=== PATIENT | female | born 1945 | race Hispanic/Latino ===

== ENCOUNTER 2017-10-04 11:34 | Emergency (ER) | payer OTHER ==
[~2017-10-04] VITALS: Ht 154.9 cm; Wt 72.1 kg
[~2017-10-04 11:34] MED LIST: ACETAMINOPHEN325 M1 PO; ATORVASTATIN CA20 MG PO; BACLOFEN10 MG PO; CALTRATE PLUS1 EACH PO; FOLIC ACID1 MG PO; LEVOTHYROXINE112 MCG PO; LOSARTAN HCTZ PO; METHOTREXATE2.5 MG PO; OXYCODONE-ACET1 EAC1 PO; PROBIOTIC & AC1 EACH PO
[2017-10-04] MEDS ORDERED: SODIUM CHLORIDE 0.9% 1000ML 1,000 ML IV STA ×2 (12:22→12:39)
[2017-10-04] MEDS ORDERED: ACETAMINOPHEN 325 MG TAB PO STA (12:22)
[2017-10-04 12:30] LABS: BASOPHILS % 0.2 % (0.0-1.0); EOSINOPHILS % 0.2 % (0.0-6.0); HEMATOCRIT 24.8 % (34.2-44.1); HEMOGLOBIN 8.3 g/dL (12.0-16.0); LYMPHOCYTES # (AUTO) 0.7 (1.0-3.2); LYMPHOCYTES % 6.2 % (18.0-39.1); MEAN CORPUSCULAR HGB CONC 33.5 g/dL (31-35); MEAN CORPUSCULAR VOLUME 101.6 fL (81-99); MONOCYTES # (AUTO) 0.7 (0.2-0.8); NEUTROPHILS # (AUTO) 9.7 (2.1-6.9); NEUTROPHILS % 83.9 % (38.7-80.0); PLATELET COUNT 161 x10e3/uL (140-360); RED BLOOD COUNT 2.44 x10e6/uL (3.6-5.1); RED CELL DISTRIBUTION WIDTH 16.3 % (11.7-14.4)
[2017-10-04] MEDS ORDERED: AZTREONAM 2GM/NS 100ML 2 GM in AZTREONAM 2GM/NS 100ML 100 ML IV ONE (12:30)
[2017-10-04] MEDS ORDERED: VANCOMYCIN 1GM/NS 250 ML 250 ML IV ONE (12:30)
[2017-10-04 12:42] LABS: ALBUMIN 2.3 g/dL (3.5-5.0); ALBUMIN/GLOBULIN RATIO 0.6 (0.8-2.0); ANION GAP 17.3 mmol/L (8-16); CALCIUM 8.2 mg/dL (8.4-10.2); CREATININE, SERUM 3.35 mg/dL (0.57-1.11); POTASSIUM 4.3 mmol/L (3.5-5.1)
[2017-10-04 12:48] LABS: CREATINE KINASE MB 2.6 ng/mL (0-5.0)
[2017-10-04] MEDS ORDERED: INSULIN REGULAR, HUMAN 100 UNIT/1 ML 3ML VIAL IV STA (12:54)
[2017-10-04 13:03] LABS: BILIRUBIN,URINE NEGATIVE (NEGATIVE); CLARITY,URINE CLOUDY (CLEAR); COLOR,URINE YELLOW (YELLOW); KETONES,URINE NEGATIVE (NEGATIVE); LEUKOCYTE ESTERASE ,URINE 2+ (NEGATIVE); NITRITE,URINE NEGATIVE (NEGATIVE); PROTEIN,URINE DIPSTICK 2+ (NEGATIVE); URINE UROBILINOGEN 0.2 mg/dL (0.2 - 1)
[2017-10-04 13:19] LABS: BACTERIA,URINE MODERATE /HPF; EPITHELIAL CELLS,URINE FEW /LPF; WBC,URINE (MAN) >50 /HPF (0-5)
--- NOTE | 2017-10-04 13:47 | Diagnostic Imaging Report ---
EXAMINATION: Head CT HISTORY: Left leg numbness, weakness COMPARISON: None. TECHNIQUE: Multidetector axial images were obtained without contrast from the foramen magnum to the vertex . The images were reconstructed using brain and bone algorithms. Thin section brain images were reformatted into coronal and sagittal planes. Intravenous contrast: None. Image quality: Motion/streaking artifact limits the evaluation of the skull base and posterior cranial fossa. FINDINGS: Parenchyma: 1. Cortico-subcortical encephalomalacia in the right medial occipital lobe (lingual gyrus), likely visible upon remote infarct in the right SENIOR QA ANALYST distribution and in the right superior cerebellum on the right superior cerebellar artery distribution. 2. Few scattered white matter hypodensities, most likely nonspecific microvascular ischemic changes. 3. No mass or hemorrhage. No CT evidence of acute territorial vascular insult. Extra-axial spaces:No abnormal density. No extra-axial fluid collections Brain volume: Normal for age. Ventricles: No hydrocephalus or displacement. Arteries: No density suggestive of thrombus. Dural sinuses: No abnormal density. Extra-axial spaces: No abnormal density. Foramen magnum: No mass, Chiari malformation, or basilar invagination. Sella: No obvious mass. Nonspecific dystrophic calcification along the posterior aspect of the sella turcica. Paranasal/mastoid sinuses: Imaged portions unremarkable. Skull/Scalp: No lytic or blastic lesions. No fractures. IMPRESSION: 1. No acute intracranial hemorrhage or cortical infarcts. 2. 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 Signed by: Dr. Lupe Joseph M.D. on 10/04/2017 1:43 PM
--- NOTE | 2017-10-04 14:30 | Diagnostic Imaging Report ---
EXAMINATION: CT of the thoracic spine without contrast. HISTORY: Back pain, left leg weakness and numbness COMPARISON: Abdomen CT on 05/29/2009 TECHNIQUE: Multidetector helical axial images were obtained without contrast through the thoracic spine. The images were reconstructed using bone and soft tissue algorithms and were viewed in axial, sagittal and coronal planes. FINDINGS: Curvature: Mild increased lower thoracic kyphosis. S-shaped scoliosis. Vertebrae: Mild chronic anterior wedging of the midthoracic vertebral bodies from T6 to T8. Chronic endplate degenerative changes from T5 through T10. Degenerative changes: Disc osteophyte complex formation from T5-T6 to T9-T10 without significant canal stenosis. Mild foraminal narrowing at T7-T8 and T8-T9 bilaterally due to facet arthrosis. Spinal canal: Unremarkable. Paraspinal soft tissues: Partially visualized gastric lap band. Posterior ribs: Unremarkable. IMPRESSION: 1. No acute thoracic spine fractures or dislocations. 2. Mild chronic anterior wedging of the mid/lower thoracic vertebral bodies as detail above. 3. Chronic degenerative changes from T5-T6 to T9-T10 as detailed above. 4. Note is made that acute posttraumatic spinal cord, vascular or ligamentous injury cannot adequately be assessed with CT. Signed by: Dr. Lupe Joseph M.D. on 10/04/2017 2:27 PM
--- NOTE | 2017-10-04 15:11 | Diagnostic Imaging Report ---
EXAMINATION: CT of the lumbar spine HISTORY:Back pain, left lower extremity numbness and weakness COMPARISON: Abdomen CT on 05/29/2009 TECHNIQUE: Multidetector helical axial images were obtained without contrast from L1 to S1. The images were reconstructed using bone and soft tissue algorithms and were viewed in axial, sagittal, and coronal planes. 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 Alignment: -Reversal of the lumbar lordosis centered at L3-L4. Grade 1 anterolisthesis at L1-L2. Mild levoscoliosis. Postoperative changes: -Posterior fusion from L3 to S1 with solid bilateral bone bridging. Bilateral transpedicular screws at L3 and L4 without hardware loosening or fracture. -Interbody fusion from L3 to L5. Vertebral bodies:Minimal chronic anterior wedging of the L3 vertebral body. Prominent chronic endplate degenerative changes at L1-L2.. Paraspinal muscles:Normal. Intervertebral disks: L1-L2: Diffuse disc bulge and vacuum phenomena, ligamenta flava thickening and calcification as well as prominent facet arthrosis. Severe spinal canal and moderate foraminal stenoses. L2-L3: Symmetric disc bulge, vacuum phenomena, ligamenta flava thickening of facet arthrosis. Possible moderate canal and foraminal stenosis, streak artifact from hardware limits evaluation.. L3-L4: Surgical level without significant stenoses. L4-L5: Surgical level with moderate to severe foraminal narrowing mainly on the left. L5-S1: Surgical level without stenoses. Sacroiliac joints: Prominent degenerative changes and vacuum phenomena bilaterally. IMPRESSION: 1. No acute fractures or dislocations. 2. Grade 1 degenerative spondylolisthesis at L1-L2. Reversal of the lumbar lordosis at L3-L4. 3. Solid interbody and posterior fusion from L3 to the sacrum as detailed above. 4. 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 Signed by: Dr. Lupe Joseph M.D. on 10/04/2017 3:07 PM
[2017-10-04] MEDS: AZTREONAM 2GM/NS 100ML 100 ML IV ONE ×2 (15:20→15:26)
[2017-10-04] MEDS ORDERED: SULFAMETHOXAZO1 EAC1 (15:34)
[2017-10-04] MEDS ORDERED: CELEBREX100 MG (15:34)
[2017-10-04 18:49] VITALS: BP 105/75
[2017-10-04] MEDS ORDERED: MORPHINE SULFATE INJ 4 MG/ML INJ IV STA (20:07)
[2017-10-04] MEDS ORDERED: MORPHINE SULFATE INJ 4 MG/ML INJ ONE (20:09)
== END 2017-10-04 20:18 | disposition other institution (70) ==
LOC: ER 11:34
DX: R50.9 Fever, unspecified (principal); R53.1 Weakness; A41.9 Sepsis, unspecified organism; R20.2 Paresthesia of skin; N17.9 Acute kidney failure, unspecified; G54.8 Other nerve root and plexus disorders; M48.061 Spinal stenosis, lumbar region without neurogenic claudication; E11.9 Type 2 diabetes mellitus without complications; R26.2 Difficulty in walking, not elsewhere classified
CPT/HCPCS: 36415; 70450; 72128; 72131; 80053; 81001; 82550; 82553; 84484; 85025; 87040; 87071; 87186; 87205; 93005; 99284; J2270; J3370; J7030

== ENCOUNTER 2019-08-07 18:00 | Inpatient (IN) | payer OTHER ==
[~2019-08-07] VITALS: Ht 152.4 cm; Wt 73.5 kg
[~2019-08-07 18:00] MED LIST changes: +CELEBREX100 MG; +SULFAMETHOXAZO1 EAC1
--- OUTSIDE RECORDS SUMMARY | 2019-08-07 18:04 | XMS REPORT ---
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
--- OUTSIDE RECORDS SUMMARY | 2019-08-07 18:04 | XMS REPORT | Clinical Summary ---
Author Author Ortiz [facility] Organization [facility] Address Unknown Phone Unavailable Care Team Providers Care Shrimp Pond Laborer Name Role Phone Wilman Bullard MD PCP Allergies Comments Active Allergy Reactions Severity Noted Date Amoxicillin Itching 10/04/2017 Codeine Other (See 10/04/2017 Comments) Medications End Date Status Medication Sig Dispensed Refills Start Date Active pregabalin (LYRICA) 75 MG Take 75 mg by 0 capsule mouth 2 (two) times a day. Active losartan-hydrochlorothiaz Take 1 tablet 0 leia (HYZAAR) 100-25 mg by mouth per tablet daily. Active atorvastatin (LIPITOR) 20 Take 20 mg by 0 MG tablet mouth daily. Default OP ins Active oxyCODone-acetaminophen Take 1 tablet 0 (PERCOCET) 10-325 mg per by mouth tablet every 6 (six) hours as needed for moderate pain. Active celecoxib (CeleBREX) 200 Take 200 mg 0 MG capsule by mouth daily. Active folic acid (FOLVITE) 400 Take 400 mcg 0 MCG tablet by mouth daily. Active levothyroxine (SYNTHROID, Take 112 mcg 0 LEVOXYL) 112 mcg tablet by mouth every morning. Active liraglutide (VICTOZA) 0.6 Inject 12-14 0 mg/0.1 mL (18 mg/3 mL) mg under the pen injector skin daily with breakfast. Active ranitidine (ZANTAC 75) 75 Take 75 mg by 0 MG tablet mouth 2 (two) times a day. Active insulin GLARGINE Inject 12 0 (BASAGLAR KWIKPEN U-100 Units under INSULIN) 100 unit/mL the skin injection (pen) every evening. Active Problems Problem Noted Date Discitis of lumbar region 10/06/2017 Type 2 diabetes mellitus 10/05/2017 Hypertension 10/05/2017 Stage 4 chronic kidney disease 10/05/2017 Left leg weakness 10/04/2017 Family History Medical History Relation Name Comments Asthma Brother Diabetes Father Heart disease Father Hyperlipidemia Father Kidney disease Father Stroke Father Cancer Mother Heart disease Mother Hypertension Mother Relation Name Status Comments Brother Father Mother Social History Date Tobacco Use Types Packs/Day Years Used Never Smoker Smokeless Tobacco: Never Used Drinks/Week oz/Week Comments Alcohol Use occasionally Yes Sex Assigned at Date Recorded Not on file Industry Job Start Date Occupation Not on file Not on file Not on file Travel End Travel History Travel Start No recent travel history available. Last Filed Vital Signs Not on file Plan of Treatment Health Maintenance Due Date Last Done Comments DIABETIC RETINAL EYE EXAM 1944 DIABETIC FOOT EXAM 1954 BREAST CANCER SCREENING 1994 COLONOSCOPY SCREENING 1994 SHINGLES VACCINES (#1) 1994 65+ PNEUMOCOCCAL VACCINE 2009 12/06/2016 (2 of 2 - PPSV23) INFLUENZA VACCINE 10/07/2019 12/06/2016 Results Not on fileafter 08/06/2018 Insurance Type Payer Benefit Subscriber ID Effective Phone Address Plan / Dates Group HMO [employer] xxxxxxxxx 2017- [place] Present Advance Directives For more information, please contact: [phone] Patient Crossing Supervisor Explanation Type Date Recorded Advance Directives, Living Will and Medical Power of Associate Director Financial Aid
--- OUTSIDE RECORDS SUMMARY | 2019-08-07 18:04 | XMS REPORT ---
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 Act daphnie Assessment Neuropathy of left hand G56.92 Acti ve Assessment Left foot drop M21.372 Active Problem 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 Act daphnie Problem Flare of rheumatoid arthritis M06.9 Active Problem Neuropathy of left hand G56.92 Acti ve Assessment 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 Problem 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 Problem Vitamin D deficiency E55.9 Active Medications Medication Code System Code Instructions Start Date End Date Status Dosage Lyrica [facility] 69727376016 100 MG Orally Twice a day May 03, 2018 Active 1 capsule Humira Pen ND 19518203249 40 MG/0.8ML Subcutaneous every 2 weeks Active 0.8 ml Chlorzoxazone [facility] 26575339030 500 MG Orally twice daily FebMay 08, 2018 Active 1 tab(s) as needed Ergocalciferol ND 02835436281 57470 UNIT Orally once weekly Active 1 capsule Zantac 75 ND 16542952962 75 MG Orally Twice a day A ctive 1 tablet as needed Levothyroxine Sodium ND 53064036812 112 MCG Orally Once a day Active 1 tablet on an empty stomach in the morning Folic Acid ND 39555973678 400 MCG Orally Once a day Active 1 tablet Losartan Potassium ND 98869307027 100 MG Orally Once a day Active 1 tablet Alendronate Sodium [facility] 01470843857 70 Orally Once a week Active 1 tablet Oxycodone-Acetaminophen [facility] 95680166912 10-325 MG Orally every 6 hrs Active 1 tablet as needed Lantus [facility] 29153938275 100 UNIT/ML Subcutaneous Ac tive not defined Celecoxib [facility] 79166166566 200 MG Orally Once a day A ctive 1 capsule with food Victoza [facility] 07238138499 18 MG/3ML Subcutaneous Acti ve not defined Atorvastatin Calcium [facility] 04356340329 20 MG Orally Once a day Active 1 tablet Vital Signs Date/Time: May 03, 2018 Height 60 in Blood Pressure Diastolic 68 mm Hg Blood Pressure Systolic 152 mm Hg Weight 160 lbs Results No Known Results Summary Purpose [employer] Submission
--- OUTSIDE RECORDS SUMMARY | 2019-08-07 18:04 | XMS REPORT ---
Author Author Mary Gamboa Organization [employer] Address Unknown Phone Unavailable Care Team Providers Care Metal Wire Technician Name Role Phone Breanne Gamboa CP [...] Instructions Start Date End Date Status Dosage Alendronate Sodium [facility] 68580775565 70 Orally Once a week Active 1 tablet Results No Known Results Summary Purpose [employer] Submission
--- OUTSIDE RECORDS SUMMARY | 2019-08-07 18:04 | XMS REPORT ---
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 Problem Vitamin D deficiency E55.9 Active Problem Flare of rheumatoid arthritis M06.9 Active Assessment 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 Assessment Left lateral knee pain M25.562 Activ e Assessment Pain of right shoulder region M25.511 Active Medications Medication Code System Code Instructions Start Date End Date Status Dosage Folic Acid [facility] 91037200769 400 MCG Orally Once a day Active 1 tablet Losartan Potassium ND 54660196261 100 MG Orally Once a day Active 1 tablet Humira Pen [facility] 27505395342 40 MG/0.8ML Subcutaneous every 2 we eks Oct 22, 2017 Apr 20, 2018 Active 0.8 ml Ergocalciferol ND 21382016960 78487 UNIT Orally once weekly Active 1 capsule Lantus ND 26363306293 100 UNIT/ML Subcutaneous Ac tive not defined Oxycodone-Acetaminophen ND 82984464529 10-325 MG Orally every 6 hrs Active 1 tablet as needed Atorvastatin Calcium ND 94777706905 20 MG Orally Once a day Active 1 tablet Celecoxib ND 32309800364 200 MG Orally Once a day A ctive 1 capsule with food Zantac 75 ND 33993268398 75 MG Orally Twice a day A ctive 1 tablet as needed Humira Pen ND 70747045837 40 MG/0.8ML Subcutaneous every 2 weeks Active 0.8 ml Levothyroxine Sodium ND 68024876566 112 MCG Orally Once a day Active 1 tablet on an empty stomach in the morning Victoza [facility] 72512041675 18 MG/3ML Subcutaneous Acti ve not defined Humira Pen [facility] 40310506258 40 MG/0.8ML Subcutaneous every 2 weeks Active 0.8 ml Alendronate Sodium [facility] 86467616026 70 Orally Once a week Active 1 tablet Vital Signs Date/Time: Feb 01, 2018 Height 60 in Blood Pressure Diastolic 69 mm Hg Blood Pressure Systolic 144 mm Hg Weight 162.6 lbs Results No Known Results Summary Purpose [employer] Submission
--- OUTSIDE RECORDS SUMMARY | 2019-08-07 18:04 | XMS REPORT ---
Author Author Mary Gamboa Organization [employer] Address Unknown Phone Unavailable Care Team Providers Care Seismograph Supervisor Name Role Phone Breanne Gamboa CP Unavailable [...] Instructions Start Date End Date Status Dosage Chlorzoxazone [facility] 81707643504 500 MG Orally twice daily FebMay 08, 2018 Active 1 tab(s) as needed Results No Known Results Summary Purpose [employer] Submission
--- OUTSIDE RECORDS SUMMARY | 2019-08-07 18:04 | XMS REPORT ---
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
--- OUTSIDE RECORDS SUMMARY | 2019-08-07 18:04 | XMS REPORT ---
Author Author Mary Gamboa Organization [employer] Address Unknown Phone Unavailable Care Team Providers Care Power Electronics Research Engineer Name Role Phone Breanne Gamboa CP Unavailable [...] Instructions Start Date End Date Status Dosage Victoza [facility] 80604967524 18 MG/3ML Subcutaneous Acti ve not defined Zantac 75 ND 81543525046 75 MG Orally Twice a day A ctive 1 tablet as needed Fentanyl ND 12793329731 25 MCG/HR Transdermal Acti ve 1 patch to skin Ergocalciferol [facility] 65581487035 14739 UNIT Orally once weekly Active 1 capsule Losartan Potassium ND 80502280580 100 MG Orally Once a day Active 1 tablet Levothyroxine Sodium ND 42983998838 112 MCG Orally Once a day Active 1 tablet on an empty stomach in the morning Celecoxib ND 13793484443 200 MG Orally Once a day A ctive 1 capsule with food Alendronate Sodium [facility] 77048990744 70 Orally Once a week Active 1 tablet Macrobid [facility] 03384695679 100 MG Orally every 12 hrs Active 1 capsule with food Enbrel SureClick [facility] 14630902336 50 MG/ML Subcutaneous Active 1 ml Lyrica [facility] 89536140811 100 MG Orally Twice a day Ac tive 1 capsule Atorvastatin Calcium [facility] 51088713710 20 MG Orally Once a day Active 1 tablet Oxycodone-Acetaminophen [facility] 22944536688 10-325 MG Orally every 6 hrs Active 1 tablet as needed Folic Acid [facility] 40994255517 400 MCG Orally Once a day Active 1 tablet Lantus [facility] 80964622427 100 UNIT/ML Subcutaneous Ac tive not defined Results No Known Results Summary Purpose [employer] Submission
--- OUTSIDE RECORDS SUMMARY | 2019-08-07 18:04 | XMS REPORT | Continuity of Care Document ---
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 Ac tive 2017-10-06 00:00:00 Angel kim Type 2 diabetes mellitus Type 2 diabetes mellitus Disease Acti ve 2017-10-05 00:00:00 Angel kim Hypertension Hypertension Disease Active 2017-10-05 00:00:00 Angel Bright Stage 4 chronic kidney disease Stage 4 chronic kidney disease Disea se Active 2017-10-05 00:00:00 Angel Bright Left leg weakness Left leg weakness Disease Active 2017-10-04 00:00:00 Angel Bright Vitamin D deficiency Toyin min D deficiency Active Diagnosis 06/05/2019 Breanne Najam Diagnosis Active 2019-06-05 02:45:41 Breanne Naaldom Left lateral knee pain Left lateral knee pain Active Diagnosis 06/05/2019 Breanne Najam Diagnosis Active 2019-06-05 02 :45:41 Breanne Najam Counseling NOS Coun seling NOS Active Diagnosis 06/05/2019 Breanne Najam Diagnosis Active 2019-06-05 02:45:41 Breanne Najam 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 Diagnosis 06/05/2019 Breanne Najam Diagnosis Active 2019-06-05 02 :45:41 Breanne Najam Neuropathy of left hand Neur opathy of left hand Active Diagnosis 06/05/2019 Breanne Najam Diagnosis Active 2019-06-05 02 :45:41 Breanne Najam Left foot drop Left foot drop Active Diagnosis 06/05/2019 Breanne Najam Diagnosis Active 2019-06-05 02:45:41 Breanne Najam Flare of rheumatoid arthritis Flare of rheumatoid arthritis Active Problem 06/05/2019 Breanne Najam Problem Active 2019-06-05 02:45:41 Breanne Najam 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 Rheumatoid arthr itis of multiple sites without organ or system involvement with positive rheumatoid factor Active Diagnosis 06/05/2019 Breanne Najam Diagnosis Active 2019-06-05 02:45:41 Breanne Najam Post-menopausal Post -menopausal Active Diagnosis 11/03/2017 Breanne Najam Diagnosis Active 2017-11-03 02:47:16 Breanne Najam Pain in right hand Pain in right hand Active Diagnosis 11/03/2017 Breanne Najam Diagnosis Active 2017-11-03 02:47:16 Breanne Najam Pain of right shoulder region Pain of right shoulder region Active Diagnosis 02/02/2018 Breanne Najam Diagnosis Active 2018-02-02 03:46:30 Breanne Najam Pain of left hand Pain of left hand Active Diagnosis 11/03/2017 Breanne Najam Diagnosis Active 2017-11-03 02:47:16 Breanne Najam Allergies, Adverse Reactions, Alerts Allergy Name Allergy Type Status Severity Reaction(s) Onset Date Inacti ve Date Treating Clinician Comments Source Amoxicillin Amoxicillin Active Info Not Available 2019-05-30 00:00 :00 [facility] amoxicillin DA Active SV 2018-11-29 00:00:00 [facility] Codeine Codeine Active Info Not Available 2017-11-02 00:00:00 [facility] Amoxicillin Propensity to adverse reactions to drug Active Itching 2017-10-04 00:00:00 Angel dunn Codeine Propensity to adverse reactions to drug Active Other (See Comments) 2017-10-04 00:00:00 Angel Clark odist Amoxicillin Allergy to Substance Active 2016-04-30 00:00:00 [facility] Codeine Allergy to Substance Active Mild HICCUPS 2009-05-29 00:00:00 [facility] codeine DA Active MA 2008-09-04 00:00:00 [facility] CODEINE DA Active U 2008-09-04 00:00:00 [facility] No Known Contrast Allergies DA Active U 2008-09-04 00:00: 00 [facility] No Known Food Allergies DA Active U 2008-09-04 00:00:00 [facility] No Known Other Allergies DA Active U 2008-09-04 00:00:00 [facility] Family History Family Member Diagnosis Comments Start Date Stop Date Source Natural brother Asthma [place] [facility] Natural father Diabetes [place] [facility] Natural father Heart disease [place] Natural father Hyperlipidemia [place] Natural father Kidney disease [place] Natural father Stroke [facility] Natural mother Cancer [facility] Natural mother Heart disease [place] Natural mother Hypertension Angel Bright Social History Social Habit Start Date Stop Date Quantity Comments Source Sex Assigned At Vik hafsa Bright Alcohol intake 2017-10-04 00:00:00 2017-10-04 00:00:00 Current drinker of alcohol (finding) Angel Bright Alcohol Comment 2017-10-04 00:00:00 2017-10-04 00:00:00 occasionally Angel Bright Smoking Status Start Date Stop Date Source Never smoker Angel dunn Medications Ordered Medication Name Filled Medication Name Start Date Stop Da te Current Medication? Ordering Clinician Indication Dosage Frequency Signature (SIG) Comments Components Source Ergocalciferol 2019-06-05 02:45:41 Yes Breanne Najam 1 capsule Breanne Najam Zantac 75 2019-06-05 02:45:41 Yes Breanne Najam 1 tablet as needed Breanne Najam Levothyroxine Sodium 2019-06-05 02:45:41 Yes Breanne Gabriella m 1 tablet on an empty stomach in the morning Breanne N ajam Folic Acid 2019-06-05 02:45:41 Yes Breanne Najam 1 tablet Breanne Najam Losartan Potassium 2019-06-05 02:45:41 Yes Breanne Najam 1 tablet Breanne Najam Alendronate Sodium 2019-06-05 02:45:41 Yes Breanne Najam 1 tablet Breanne Najam Oxycodone-Acetaminophen 2019-06-05 02:45:41 Yes Breanne N ajam 1 tablet as needed Breanne Najam Lantus 2019-06-05 02:45:41 Yes Breanne Najam not d efined Breanne Najam Celecoxib 2019-06-05 02:45:41 Yes Breanne Najam 1 capsule with food Breanne Najam Victoza 2019-06-05 02:45:41 Yes Breanne Najam not defined Breanne Najam Atorvastatin Calcium 2019-06-05 02:45:41 Yes Breanne Najam 1 tablet Breanne Najam Fentanyl 2019-06-05 02:45:41 Yes Breanne Najam 1 p atch to skin Breanne Najam Lyrica 2019-06-05 02:45:41 Yes Breanne Najam 1 cap yamilex Breanne Najam Macrobid 2019-06-05 02:45:41 Yes Breanne Najam 1 c apsule with food Breanne Najam Enbrel SureClick 2019-06-05 02:45:41 Yes Breanne Najam 1 ml Breanne Najam Humira Pen 2018-09-21 02:47:05 Yes Breanne Najam 0 .8 ml Breanne Najam Lyrica 2018-05-03 00:00:00 Yes Breanne Najam 1 cap yamilex Breanne Najam Chlorzoxazone 2018-02-07 00:00:00 Yes Breanne Najam 1 tab(s) as needed Breanne Najam Humira Pen 2017-10-22 00:00:00 Yes Breanne Najam 0 .8 ml Breanne Najam pregabalin (LYRICA) 75 MG capsule 2017-10-08 19:32:46 Yes 75mg Q.5D Take 75 mg by mouth 2 (two) times a day. [place] losartan-hydrochlorothiazide (HYZAAR) 100-25 mg per tablet 2017-10-08 19:32:46 Yes 1{tbl} QD Take 1 tablet by mouth daily. Angel Bright atorvastatin (LIPITOR) 20 MG tablet 2017-10-08 19:32:46 Yes 20mg QD Take 20 mg by mouth daily. Default OP ins Vik [place] Jew oxyCODone-acetaminophen (PERCOCET) 10-325 mg per tablet 2017-10-08 19:32:46 Yes 1{tbl} Q6H Take 1 tablet b y mouth every 6 (six) hours as needed for moderate pain. Angel Bright celecoxib (CeleBREX) 200 MG capsule 2017-10-08 19:32:46 Yes 200mg QD Take 200 mg by mouth daily. Angel dhaliwal folic acid (FOLVITE) 400 MCG tablet 2017-10-08 19:32:46 Yes 400ug QD Take 400 mcg by mouth daily. Angel estevez levothyroxine (SYNTHROID, LEVOXYL) 112 mcg tablet 2017-10-08 19:32:46 Yes 112ug QD Take 112 mcg by mouth every morning. Angel Bright liraglutide (VICTOZA) 0.6 mg/0.1 mL (18 mg/3 mL) pen injecto r 2017-10-08 19:32:46 Yes 12mg QD Inject 12-14 mg under t he skin daily with breakfast. Angel Bright ranitidine (ZANTAC 75) 75 MG tablet 2017-10-08 19:32:46 Yes 75mg Q.5D Take 75 mg by mouth 2 (two) times a day. Angel Bright insulin GLARGINE (BASAGLAR KWIKPEN U-100 INSULIN) 100 unit/m L injection (pen) 2017-10-08 19:32:46 Yes 12U QD Inject 12 Units under the skin every evening. Angel Bright Morphine Sulfate 2017-07-28 02:47:07 Yes Breanne Najam 1 tablet as needed Breanne Najam Enbrel SureClick 2017-07-27 00:00:00 Yes Breanne Najam 1 ml Breanne Najam PredniSONE 2017-07-27 00:00:00 Yes Breanne Najam 1 tab(s) with food as needed Breanne Najam Methocarbamol 2017-07-27 00:00:00 Yes Breanne Najam 1.5 tablets Breanne Najam Humira Pen 2017-07-27 00:00:00 Yes Breanne Najam 0 .8 ml Breanne Najam Methocarbamol 2017-05-14 03:46:36 Yes Breanne Najam 1.5 tablets Breanne Najam Alendronate Sodium 2017-05-13 00:00:00 Yes Breanne Najam 1 tablet Breanne Najam Ergocalciferol 2017-05-13 00:00:00 Yes Breanne Najam 1 capsule Breanne Naaldom Enbrel SureClick 2017-05-13 00:00:00 Yes Breanne Najam 1 ml Breanne Najam Acetaminophen 325 Mg Tablet Acetaminophen 325 Mg Tablet Yes 650 Every 4 Hours as needed for Pain [facility] Atorvastatin Calcium 20 Mg Tablet Atorvastatin Calcium 20 Mg Tablet Yes 20 Bedtime [facility] Baclofen 10 Mg Tablet Baclofen 10 Mg Tablet Yes 10 Three Times A Day [facility] Calcium Carb/Vit D3/Minerals (Caltrate Plus Tablet) 1 Each Tablet Calcium Carb/Vit D3/Minerals (Caltrate Plus Tablet) 1 Each Tablet Yes 1 Daily [facility] Celecoxib (Celebrex*) 100 Mg Capsule Celecoxib (Celebrex*) 100 Mg C apsule Yes [facility] Folic Acid 1 Mg Tablet Folic Acid 1 Mg Tablet Yes 1 Daily [facility] Lactobac Cmb #3/Fos/Pantethine (Probiotic & Acidophilu s Cap) 1 Each Capsule Lactobac Cmb #3/Fos/Pantethine (Probiotic & Acidophilus Cap) 1 Each Capsule Yes 1 Daily [facility] Levothyroxine Sodium 112 Mcg Tablet Levothyroxine Sodium 112 Mcg Tabl et Yes 112 Daily [facility] Losartan Hctz Losartan Hctz Yes 100 Daily [facility] Methotrexate Sodium (Methotrexate) 2.5 Mg Tablet Metho trexate Sodium (Methotrexate) 2.5 Mg Tablet Yes 5 Use As Di rected [facility] Oxycodone Hcl/Acetaminophen (Oxycodone-Acetaminophen 5 -325) 1 Each Tablet Oxycodone Hcl/Acetaminophen (Oxycodone-Acetaminophen 5-325) 1 Each Tablet Yes 10 Every 6 Hours for Pain C HI [facility] Sulfamethoxazole/Trimethoprim (Sulfamethoxazole-Tmp Ds Tablet) 1 Each Tablet Sulfamethoxazole/Trimethoprim (Sulfamethoxazole-Tmp Ds Tablet) 1 Each Tablet Yes [facility] Vital Signs Vital Name Observation Time Observation Value Comments Source Height 2018-09-19 16:15:00 Breanne N ajam Diastolic (mm Hg) 2018-09-19 16:15:00 Sab een Najam Systolic (mm Hg) 2018-09-19 16:15:00 Sabe en Gabriellam Weight 2018-09-19 16:15:00 Breanne N ajam Height 2018-05-03 17:15:00 Breanne N ajam Diastolic (mm Hg) 2018-05-03 17:15:00 Sab een Najam Systolic (mm Hg) 2018-05-03 17:15:00 Sabe en Bee Weight 2018-05-03 17:15:00 Breanne N ajam Height 2018-02-01 17:15:00 Breanne N ajam Diastolic (mm Hg) 2018-02-01 17:15:00 Sab een Najam Systolic (mm Hg) 2018-02-01 17:15:00 Sabe en Bee Weight 2018-02-01 17:15:00 Breanne N ajam Height 2017-11-02 15:30:00 Breanne N ajam Diastolic (mm Hg) 2017-11-02 15:30:00 Sab een Najam Systolic (mm Hg) 2017-11-02 15:30:00 Sabe en Gabriellam Weight 2017-11-02 15:30:00 Breanne N ajam Height 2017-07-27 15:00:00 Breanne N ajam Diastolic (mm Hg) 2017-07-27 15:00:00 Sab een Najam Systolic (mm Hg) 2017-07-27 15:00:00 Sabe en Gabriellam Weight 2017-07-27 15:00:00 Breanne N ajam Height 2017-05-13 15:15:00 Breanne N ajam Diastolic (mm Hg) 2017-05-13 15:15:00 Sab een Najam Systolic (mm Hg) 2017-05-13 15:15:00 Sabe en Najam Weight 2017-05-13 15:15:00 Breanne N ajam Height 2017-04-29 15:00:00 Breanne N ajam Diastolic (mm Hg) 2017-04-29 15:00:00 Sab een Najam Systolic (mm Hg) 2017-04-29 15:00:00 Sabe en Bee Weight 2017-04-29 15:00:00 Breanne N ajam Procedures Procedure Date / Time Performed Performing Clinician [facility] e Computed tomography of brain without radiopaque contrast 201 10-12-29 00:00:00 FAHAD, [facility] Computed tomography of thoracic spine without contrast 10-04 00:00:00 FAHAD, [facility] Computed tomography of lumbar spine without contrast 2017-09 00:00:[address] [facility] Plan of Care Planned Activity Planned Date Details Comments Source Future Scheduled Test 2019-10-07 00:00:00 INFLUENZA VACCINE [code = INFLUENZA VACCINE] [facility] Future Scheduled Test 2009 00:00:00 65+ PNEUMOCOCCAL V ACCINE (2 of 2 - PPSV23) [code = 65+ PNEUMOCOCCAL VACCINE (2 of 2 - PPSV23)] [facility] Future Scheduled Test 1994 00:00:00 BREAST CANCER SCRE ENING [code = BREAST CANCER SCREENING] [facility] Future Scheduled Test 1994 00:00:00 COLONOSCOPY SCREEN ING [code = COLONOSCOPY SCREENING] [facility] Future Scheduled Test 1994 00:00:00 SHINGLES VACCINES (#1) [code = SHINGLES VACCINES (#1)] [facility] Future Scheduled Test 1954 00:00:00 DIABETIC FOOT EXAM [code = DIABETIC FOOT EXAM] [facility] Future Scheduled Test 1944 00:00:00 DIABETIC RETINAL E YE EXAM [code = DIABETIC RETINAL EYE EXAM] [facility] Encounters Start Date/Time End Date/Time Encounter Type Admission Type Attendi [facility] Care Department Encounter ID Source 2019-08-07 18:04:13 Outpatient MHIEALT MHIEALT [id number] [facility] 2019-05-30 10:45:00 2019-05-30 10:45:00 Outpatient [facility] [id number] [employer] 2018-09-19 11:15:00 2018-09-19 11:15:00 Outpatient [facility] [id number] [employer] 2018-05-13 09:38:00 2018-05-13 09:38:00 Outpatient [facility] [id number] [employer] 2018-05-03 11:15:00 2018-05-03 11:15:00 Outpatient [facility] [id number] [employer] 2018-02-07 11:54:00 2018-02-07 11:54:00 Outpatient [facility] [id number] [employer] 2018-02-01 11:15:00 2018-02-01 11:15:00 Outpatient [facility] [id number] [employer] 2017-12-27 11:21:00 2017-12-27 11:21:00 Outpatient [facility] [id number] [employer] 2017-11-02 10:30:00 2017-11-02 10:30:00 Outpatient [facility] [id number] [employer] 2017-10-21 16:37:00 2017-10-21 16:37:00 Outpatient [facility] [id number] [employer] 2017-10-13 11:37:00 2017-10-13 11:37:00 Outpatient [facility] [id number] [employer] 2017-10-04 11:34:00 2017-10-04 20:18:00 Departed Emergency Room [address] [facility] [id number] [facility] 2017-07-27 12:34:00 2017-07-27 12:34:00 [facility]patient [facility] [id number] [employer] 2017-07-27 10:00:00 2017-07-27 10:00:00 Outpatient [facility] [id number] [employer] 2017-05-13 12:43:00 2017-05-13 12:43:00 Outpatient [facility] [id number] [employer] 2017-05-13 09:15:00 2017-05-13 09:15:00 Outpatient [facility] [id number] [employer] 2017-04-29 09:00:00 2017-04-29 09:00:00 Outpatient [facility] [id number] [employer] Results Test Description Test Time Test Comments Results Result Comments Source URINALYSIS COMPLETE 2019-01-11 20:24:00 Test Item UA COLOR (test code = COLU) YELLOW YELLOW UA APPEARANCE (test code = APPU) Cloudy CLEAR A UA GLUCOSE DIPSTICK (test code = DGLUU) 250 (2+) mg/dL NEGATIVE A UA BILIRUBIN DIPSTICK (test code = BILU) NEGATIVE mg/dL NEGATIVE UA KETONE DIPSTICK (test code = KETU) neg mg/dL NEGATIVE UA SPECIFIC GRAVITY (test code = SGU) 1.015 1.001-1.035 UA BLOOD DIPSTICK (test code = DEANNA) 150 (3+) Nawaf/uL NEGATIVE A UA PH DIPSTICK (test code = JOLLY) 5.0 5.0-8.0 UA PROTEIN DIPSTICK (test code = PROU) 30 (1+) mg/dL Neg-15 A UA UROBILINIOGEN DIPSTICK (test code = URO) norm mg/dL 0.0-0.2 UA NITRITE DIPSTICK (test code = JUNIOR) NEGATIVE NEGATIVE UA LEUKOCYTE ESTERASE DIPSTICK (test code = LEUU) 500 Panchito/uL (3+) u L NEGATIVE A UA WBC (test code = WBCU) 40-50 per HPF 0-5 A UA RBC (test code = RBCU) 5-10 per HPF 0-5 A UA EPITHELIAL CELLS (test code = EPIU) Rare (0-1/hpf) per HPF Few UA BACTERIA (test code = BACU) TRACE per HPF NONE Urine Source? Clean Catch- CT MAXIFAC W/O [id number] 20:14:00 Name: ARNALDO LAMB [facility] : 1945 Age/S: 73 / F [address] [facility] Unit #: [id number] Loc: [place] [address] Phys: Bess MD Acct: [id number] Di s Date: Status: REG ER PHONE #: Exam Date: 01/11/20191948 FAX #: Reason: Pain s/p fall EXAMS: CPT CODE: [id number] CT MAXIFAC W/O CNT [id number] REASON FOR EXAM: Pain s/p fall EXAM ORDER DATE: 01/11/2019 7:13 PM Ordering: Chiquita Toledo MD Attending:Campos Toledo MD Location: PROCEDURE: - CT MAXIFAC W/O CNT FINDINGS: CT images of the f toby were obtained without IV contrast at 2.5 mm thickness. Dose modulatio n, iterative reconstruction, and/or weight based adjustment of the MA/KV w as utilized to reduce the radiation dose to as low as reasonably achievabl e. The globes are intact. The orbital urbina are unremarkable wit hout evidence of orbital blowout fracture. The nasal bone is unrema rkable. The mandibles are within normal limits. No evidence of facial fr acture The visualized paranasal sinuses are well aerated I MPRESSION: No evidence of facial fracture at 2014 Reported and signed by : Angelo Fontana M.D. CC: Campos Toledo MD; Wilman Hough Technologist:ORLY SONI RT(R),RDMS,CT CTDI: DLP: Trnscb Date/Time: 01/11/2019 (2013) Angelica.[email or web address] Orig Print D/T: S: 01/11/2019 (2017) PAGE 1 Signed Report URINALYSIS [id number] 20:11:00* Test Item Value Reference Range Interpretation Comments UA COLOR (test code = COLU) YELLOW YELLOW UA APPEARANCE (test code = APPU) Cloudy CLEAR A UA GLUCOSE DIPSTICK (test code = DGLUU) 250 (2+) mg/dL NEGATIVE A UA BILIRUBIN DIPSTICK (test code = BILU) NEGATIVE mg/dL NEGATIVE UA KETONE DIPSTICK (test code = KETU) neg mg/dL NEGATIVE UA SPECIFIC GRAVITY (test code = SGU) 1.015 1.001-1.035 UA BLOOD DIPSTICK (test code = DEANNA) 150 (3+) Nawaf/uL NEGATIVE A UA PH DIPSTICK (test code = JOLLY) 5.0 5.0-8.0 UA PROTEIN DIPSTICK (test code = PROU) 30 (1+) mg/dL Neg-15 A UA UROBILINIOGEN DIPSTICK (test code = URO) norm mg/dL 0.0-0.2 UA NITRITE DIPSTICK (test code = JUNIOR) NEGATIVE NEGATIVE UA LEUKOCYTE ESTERASE DIPSTICK (test code = LEUU) 500 Panchito/uL (3+) u L NEGATIVE A UA WBC (test code = WBCU) per HPF 0-5 UA RBC (test code = RBCU) per HPF 0-5 UA EPITHELIAL CELLS (test code = EPIU) per HPF Few UA BACTERIA (test code = BACU) per HPF NONE Urine Source? Clean Catch- CT C-SPINE W/O [id number] 20:07:00 Name: ARNALDO LAMB [facility] : 1945 Age/S: 73 / F [address] [facility] Unit #: [id number] Loc: [place] [address] Phys: Bess MD Acct: [id number] Di s Date: Status: REG ER PHONE #: Exam Date: 01/11/20191947 FAX #: Reason: Pain s/p Fall EXAMS: CPT CODE: [id number] CT C-SPINE W/O CONTRAST [id number] REASON FOR EXAM: Pain s/p Fall EXAM ORDER DATE: 01/11/2019 7:13 PM Or dering: Campos Toledo MD Attending:Campos Toledo MD Location: PROCEDURE: - CT C-SPINE W/O CONTRAST FINDINGS: CT i mages of the cervical spine were obtained without IV contrast at 2.5mm. Re constructed coronal and sagittal images were also provided. Dose modulati on, iterative reconstruction, and/or weight based adjustment of the MA/KV was utilized to reduce the radiation dose to as low as reasonably achievab le. The osseous structures are intact. Osteophytes are seen at C5 -C7 The central canal is patent. Severe narrowing of C5-6 an d C6-7 disc spaces IMPRESSION: Degenerative changes and disc dis ease most pronounced at C5-C7. No acute findings Electronic ally Signed by Sandra Fontana on 01/11/2019 at 2006 Report ed and signed by: Angelo Fontana M.D. CC: Campos Toledo MD; Tanna Hough am Technologist:ORLY SONI RT(R),RDMS,CT CTDI: DLP: Trnscb Date/Time: 01/11/2019 (2006) [email or web address] Orig Print D/T: S: 01/11/2019 (2010) PAGE 1 Signed Report - CT HEAD/BRAIN W/O [id number] 20:06:00 Name: ARNALDO LAMB [facility] : 1945 Age/S: 73 / F [address] [facility] Unit #: [id number] Loc: [place], [place] [address] Phys: Bess MD Acct: [id number] Di s Date: Status: REG ER PHONE #: Exam Date: 01/11/20191947 FAX #: [phone] Reason: Pain s/p Fall EXAMS: CPT CODE: [id number] CT HEAD/BRAIN W/O CONT [id number] REASON FOR EXAM: Pain s/p Fall EXAM ORDER DATE: 01/11/2019 7:13 PM Ord ering: Campos Toledo MD Attending:Campos Toledo MD Location: PROCEDURE: - CT HEAD/BRAIN W/O CONT COMPARISON: FINDINGS: CT images of the brain were obtained without IV contrast. Dose modulation, iterative reconstruction, and/or weight based adjust ment of the MA/KV was utilized to reduce the radiation dose to as low as r easonably achievable. The brain parenchyma is within normal limit s. The morris-white matter delineation is unremarkable. The ventricles, cist erns, and sulci are unremarkable. There is no evidence of hemorrhage, mass , mass effect. There is no evidence of acute or old infarct. The calvari um is intact. IMPRESSION: Small soft tissue swelling in th e right frontal scalp. No acute intracranial findings at 2005 Reported and signed by: Angelo Fontana M.D. CC: Campos Toledo MD; Wilman Hough Technologist:ORLY SONI RT(R),RDMS,CT CTDI: DLP: Trnscb Date/Time: 01/11/2019 (2005) [email or web address] Orig Print D/T: S: 01/11/2019 (2008) PAGE 1 Signed Report - XR KNEE 3 V [id number] 20:05:00 Name: ARNALDO LAMB [facility] : 1945 Age/S:73 /F [address] [facility] Unit#:[id number] Loc: [place] [address] Phys: Campos Toledo MD Dis Date: PHONE #: [phone] Status: REG ER FAX #: [phone] Exam Date: 01/11/2019 Reason: Pain s/p Fall EXAMS: CPT CODE: [id number] XR KNEE 3 [place] [id number] REASON FOR EXAM: Pain s/p Fall EXAM ORDER DATE: 01/11/2019 7:13 PM Ordering: Campos Toledo MD Attending:Campos Toledo MD Location: PROCEDURE: - XR KNEE 3 V LT FINDINGS: 4 views of the left knee were obtained. The osseous structures are unremarkable in size and shape. The joint spaces are maintained. No evidence of fracture. No evidence of joint effusion. The patella is intact IMPRESSION: Unremarkable left knee at 2005 Reported and signed by: Angelo Fontana M.D. CC: Campos Toledo MD; Wilman Hough Technologist: ORLY SONI RT(R),RDMS,CT Trnscrpt Data: 01/11/2019 (2004) [email or web address] Orig Print D/T: S: 01/11/2019 (2008) PAGE 1 Signed Report BASIC METABOLIC [id number] 19:36:00* Test Item Value Reference Range Interpretation Comments SODIUM (test code = NA) 139 mmol/L 136-145 N POTASSIUM (test code = K) 4.6 mmol/L 3.5-5.1 N CHLORIDE (test code = CL) 103 mmol/L 101-109 N CARBON DIOXIDE (test code = CO2) 30.2 mmol/L 21-32 N ANION GAP (test code = GAP) 10 mmol/L 10-20 N GLUCOSE (test code = GLU) 230 mg/dL 74-106 H BLOOD UREA NITROGEN (test code = BUN) 29 mg/dL 3-21 H GLOMERULAR FILTRATION RATE (test code = GFR) 39 mL/min >=60 Estimated GFR by using Modified MDRD formula.Chronic kidney disease is defined as either kidney damageor GFR <60 mL/min/1.73 m2 for >3 months. CREATININE (test code = CREAT) 1.34 mg/dL 0.55-1.3 H BUN/CREATININE RATIO (test code = BUN/CREA) 21.6 10-20 H CALCIUM (test code = CA) 8.5 mg/dL 8.4-10.2 N CREATINE KINASE (CK)2019-01-11 19:36:00* Test Item Value Reference Range Interpretation Comments CREATINE KINASE (CK) (test code = CK) 124 U/L 26-192 N [id number] 19:36:00* Test Item Value Reference Range Interpretation Comments MAGNESIUM (test code = MAG) 2.2 mg/dL 1.6-2.3 N BASIC METABOLIC [id number] 19:32:00* Test Item Value Reference Range Interpretation Comments SODIUM (test code = NA) 139 mmol/L 136-145 N POTASSIUM (test code = K) 4.6 mmol/L 3.5-5.1 N CHLORIDE (test code = CL) 103 mmol/L 101-109 N CARBON DIOXIDE (test code = CO2) 30.2 mmol/L 21-32 N ANION GAP (test code = GAP) 10 mmol/L 10-20 N GLUCOSE (test code = GLU) 230 mg/dL 74-106 H BLOOD UREA NITROGEN (test code = BUN) 29 mg/dL 3-21 H GLOMERULAR FILTRATION RATE (test code = GFR) 39 mL/min >=60 Estimated GFR by using Modified MDRD formula.Chronic kidney disease is defined as either kidney damageor GFR <60 mL/min/1.73 m2 for >3 months. CREATININE (test code = CREAT) 1.34 mg/dL 0.55-1.3 H BUN/CREATININE RATIO (test code = BUN/CREA) 21.6 10-20 H CALCIUM (test code = CA) 8.5 mg/dL 8.4-10.2 N CREATINE KINASE (CK)2019-01-11 19:32:00* Test Item Value Reference Range Interpretation Comments CREATINE KINASE (CK) (test code = CK) IUnit/L 26-208 [id number] 19:32:00* Test Item Value Reference Range Interpretation Comments MAGNESIUM (test code = MAG) mg/dL 1.8-2.4 CBC W/AUTO [id number] 19:25:00* Test Item Value Reference Range Interpretation Comments WHITE BLOOD CELL (test code = WBC) 10.1 K/mm3 4.5-12.5 N RED BLOOD CELL (test code = RBC) 2.67 mill/mm3 3.7-5.2 L HEMOGLOBIN (test code = HGB) 9.1 gram/dL 11.5-15.5 L HEMATOCRIT (test code = HCT) 28.3 % 36.0-46.0 L MEAN CELL VOLUME (test code = MCV) 106.0 fL 80-98 H MEAN CELL HGB (test code = MCH) 34.1 picogram 27.0-33.0 H MEAN CELL HGB CONCETRATION (test code = MCHC) 32.2 gram/dL 33.0-36. 0 L RED CELL DISTRIBUTION WIDTH (test code = RDW) 14.5 % 11.6-16. 2 N RED CELL DISTRIBUTION WIDTH SD (test code = RDW-SD) 56.5 fL 37 .0-51.0 H PLATELET COUNT (test code = PLT) 223 K/mm3 150-450 N MEAN PLATELET VOLUME (test code = MPV) 11.1 fL 6.7-11.0 H NEUTROPHIL % (test code = NT%) 61.0 % 39.0-69.0 N LYMPHOCYTE % (test code = LY%) 30.7 % 25.0-55.0 N MONOCYTE % (test code = MO%) 6.5 % 0.0-10.0 N EOSINOPHIL % (test code = EO%) 1.3 % 0.0-5.0 N BASOPHIL % (test code = BA%) 0.2 % 0.0-1.0 N NEUTROPHIL # (test code = NT#) 6.19 K/mm3 1.8-7.7 N LYMPHOCYTE # (test code = LY#) 3.11 K/mm3 1.0-5.0 N MONOCYTE # (test code = MO#) 0.66 K/mm3 0-0.8 N EOSINOPHIL # (test code = EO#) 0.13 K/mm3 0.0-0.5 N BASOPHIL # (test code = BA#) 0.02 K/mm3 0.0-0.2 N MANUAL DIFF REQUIRED (test code = MDIFF) NO - XR FLUOROSCOPY 0-60 [id number] 10:10:00 FAX: Wilman Tamez MD [phone] [place]: St: REG FAX: Kevin Cash MD [phone] Name: ARNALDO LAMB [facility] : 1945 Age/S: 73/F [address] [place] [address] Unit #: [id number] Loc: [place] [address] Phys: Kevin Greenwood MD Acct: [id number] Dis Date: Status[place] [facility] [place] #: [phone] Exam Date: 12/01/2018 0757 FAX #: [phone] Reason: CHRONIC PAIN SYNDROME ,POST LAMINECTOMY SYNDROME EXAMS: CPT CODE: [id number] XR FLUOROSCOPY 0-60 MIN 63930 Study: - XR FLUOROSCOPY 0-60 MIN 12/01/2018 7:43 AM Patient Name: ARNALDO LAMB MR: [id number] DATE: 019 7:43 AM : 1945; Age: 73 years y/o Female Ordering Phy sician: Kevin Greenwood MD Clinical Indication: CHRONIC PAIN SYND VADIM,POST LAMINECTOMY SYNDROME (LUMBAR) Intraprocedural fluo roscopy was provided by the Department of Radiology. Any images obtained w ere interpreted by the surgeon intraoperatively. Fluoroscopy time: 11 seconds Reference Air Kerma: 1.8 mGy SL: [id number] at 1010 R eported and signed by: Daylin Foreman D.O. CC: Wilman Hough MD; Kevin Greenwood MD Technologist: RT Moncho(R) Trnscrd Date/Time/By: 12/01/2018 (1010) : By: Pasquale [id number] Orig Print D/T: S: 12/01/2018 (1013) JOSÉ MIGUEL JARVIS 1 Signed Report GLUBED 2018-12-01 09:03:00* Test Item Value Reference Range Interpretation Comments GLUBED (test code = GLUBED) 232 MG/DL 70-110 H Performed by certified bushing press operator at [facility] [id number] 08:28:00* Test Item Value Reference Range Interpretation Comments GLUBED (test code = GLUBED) 164 MG/DL 70-110 H Performed by certified bushing press operator at [facility] [id number] 07:56:00* Test Item Value Reference Range Interpretation Comments GLUBED (test code = GLUBED) 173 MG/DL 70-110 H Performed by certified bushing press operator at [facility] - XR CHEST 2 [id number] 12:29:00 FAX: Wilman Tamez MD [phone] [place]: St: PRE FAX: Kevin Cash MD [phone] Name: ARNALDO LAMB [facility] : 1945 Age/S: 73/F [address] [place] [address] Blvd Unit #: [id number] Loc: [place] [address] Phys: Kevin Greenwood MD Acct: [id number] Dis Date: Status: PRE SDC PHONE #: [phone] Exam Date: 11/29/2018 1224 FAX #: [phone] Reason: IT PUMP TRIAL FOR CHRONIC PAIN SYNDROME EXAMS: CPT CODE: [id number] XR CHEST 2 V 73912 EXAM: PA and lateral chest. EXAM DATE: November 29, 2018 at 1144 hours CLINICAL HISTORY: IT PUMP TRIAL FOR CHRONIC PAIN SYNDROME COMPARISON: None Right size is within normal limits. Mild atherosclerotic calcifications of the intrathoracic aorta are noted.. The lungs appear free of acute disease. Fixation devices noted in the upper lumbar spine region. There is also evidence of gastric banding. IMPRESSION: No evidence of acute cardiopulmonary disease. at 5319 Reported and signed by: Adrianna Chow M.D. CC: Wilman Hough MD; Kevin Greenwood MD Technologist: David Muller RT(R) Trnscrd Date/Time/By: 11/29/2018 (2568) : By: Charito Orig Print D/T: S: 11/29/2018 (8855) PAGE 1 Signed Report CBC W/AUTO DIFF 2018-11-29 12:11:00* Test Item Value Reference Range Interpretation Comments WHITE BLOOD CELL (test code = WBC) 7.82 x10 3/uL 4.5-11.0 N RED BLOOD CELL (test code = RBC) 3.20 x10 6/uL 3.54-5.02 L HEMOGLOBIN (test code = HGB) 10.9 g/dL 11.0-15.0 L HEMATOCRIT (test code = HCT) 33.5 % 33.0-45.0 N MEAN CELL VOLUME (test code = MCV) 104.7 fL 81.0-99.0 H MEAN CELL HGB (test code = MCH) 34.1 pg 27.0-33.0 H MEAN CELL HGB CONCETRATION (test code = MCHC) 32.5 g/dL 33.0-37. 0 L RED CELL DISTRIBUTION WIDTH CV (test code = RDW) 14.1 % 11.5- 14.5 N RED CELL DISTRIBUTION WIDTH SD (test code = RDW-SD) 53.5 fL 37 .0-54.0 N PLATELET COUNT (test code = PLT) 258 x10 3/uL 150-400 N MEAN PLATELET VOLUME (test code = MPV) 11.5 fL 7.0-9.0 H NEUTROPHIL % (test code = NT%) 51.2 % 56.0-77.0 L IMMATURE GRANULOCYTE % (test code = IG%) 0.4 % 0.0-2.0 N LYMPHOCYTE % (test code = LY%) 35.7 % 14.0-32.0 H MONOCYTE % (test code = MO%) 7.9 % 4.8-9.0 N EOSINOPHIL % (test code = EO%) 4.5 % 0.3-3.7 H BASOPHIL % (test code = BA%) 0.3 % 0.0-2.0 N NUCLEATED RBC % (test code = NRBC%) 0.0 % 0-0 N NEUTROPHIL # (test code = NT#) 4.01 x10 3/uL 2.0-7.6 N IMMATURE GRANULOCYTE # (test code = IG#) 0.03 x10 3/uL 0.00-0.03 N LYMPHOCYTE # (test code = LY#) 2.79 x10 3/uL 1.0-3.8 N MONOCYTE # (test code = MO#) 0.62 x10 3/uL 0.1-0.8 N EOSINOPHIL # (test code = EO#) 0.35 x10 3/uL 0.0-0.2 H BASOPHIL # (test code = BA#) 0.02 x10 3/uL 0.0-0.2 N NUCLEATED RBC # (test code = NRBC#) 0.00 x10 3/uL 0.0-0.1 N MANUAL DIFF REQUIRED (test code = MDIFF) NO BASIC METABOLIC [id number] 11:34:00* Test Item Value Reference Range Interpretation Comments SODIUM (test code = NA) 138 mEq/L 134-147 N POTASSIUM (test code = K) 4.6 mEq/L 3.4-5.0 N CHLORIDE (test code = CL) 105 mEq/L 100-108 N CARBON DIOXIDE (test code = CO2) 29 mEq/L 21-33 N ANION GAP (test code = GAP) 9 0-20 N GLUCOSE (test code = GLU) 155 mg/dL 70-110 H BLOOD UREA NITROGEN (test code = BUN) 21 mg/dL 7-18 H GLOMERULAR FILTRATION RATE (test code = GFR) 40.0 70-80 L Units of measure = ml/min/1.73 m2 CREATININE (test code = CREAT) 1.3 mg/dL 0.6-1.3 N CALCIUM (test code = CA) 9.2 mg/dL 8.0-10.[address] LUMBAR SPINE [id number] 14:31:00 [place] [address] Patient Name: ARNALDO LAMB MR #: [id number] : 1945 Age/Sex: 72/F Req #: [id number] Adm Physician: Ordered by: JESSICA VÁSQUEZ MD Report #: [id number] Location: ER Room/Bed: Procedure: [id number] CT/CT LUMBAR SPINE WO Exam Date: 10/04/17 Exam Time: 1240 REPORT STATUS: S igned EXAMINATION: CT of the lumbar spine HISTORY:Back pain, left lower extremity numbness and weakness COMPARISON: Abdomen CT on 05/29/2009 TECHNIQ UE: Multidetector helical axial images were obtained without contrast from L1 to S1. The images were reconstructed using bone and soft tissue algorithms a nd were viewed in axial, sagittal, and coronal planes. 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 Alignment: -Reversal of the lumbar lordosis ce ntered at L3-L4. Grade 1 anterolisthesis at L1-L2. Mild levoscoliosis. Postope rative changes: -Posterior fusion from L3 to S1 with solid bilateral bone brid ging. Bilateral transpedicular screws at L3 and L4 without hardware loosening or fracture. -Interbody fusion from L3 to L5. Vertebral bodies:Minimal chronic anterior wedging of the L3 vertebral body. Prominent chronic endplate degenerative changes at L1-L2.. Paraspinal muscles:Normal. Intervertebral disks: L1-L2: Diffuse disc bulge and vacuum phenomena, liga menta flava thickening and calcification as well as prominent facet arthrosis. Severe spinal canal and moderate foraminal stenoses. L2-L3: Symmetric disc bulge, vacuum phenomena, ligamenta flava thickening of facet arthrosis. Poss ible moderate canal and foraminal stenosis, streak artifact from hardware limi ts evaluation.. L3-L4: Surgical level without significant stenoses. L4-L 5: Surgical level with moderate to severe foraminal narrowing mainly on the le ft. L5-S1: Surgical level without stenoses. Sacroiliac joints: Promi nent degenerative changes and vacuum phenomena bilaterally. IMPRESSION: 1. No acute fractures or dislocations. 2. Grade 1 degenerative spondylo listhesis at L1-L2. Reversal of the lumbar lordosis at L3-L4. 3. Solid i nterbody and posterior fusion from L3 to the sacrum as detailed above. 4. 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 Signed by: Dr. French Joseph M.D. on 10/04/2017 3:07 PM Dictated By: FRENCH JOSEPH MD 06 COPY TO: IFRAH VÁSQUEZ MD CT THORACIC SPINE [id number] 14:19:00 [place] [address] Patient Name: ARNALDO LAMB MR #: [id number] : 1945 Age/Sex: 72/F Req #: [id number] Adm Physician: Ordered by: JESSICA VÁSQUEZ MD Report #: [id number] Location: ER Room/Bed: Procedure: [id number] CT/CT THORACIC SPINE WO Exa m Date: 10/04/17 Exam Time: 1240 REPORT STATUS: Signed ADDENDUM #1 Dose modulation, iterative donny nstruction, and/or weight based adjustment of the mA/kV was utilized to reduce the radiation dose to as low as reasonably achievable. Signed by: Dr. Destini Joseph M.D. on 10/26/2017 11:48 AM ORIGINAL REPORT E XAMINATION: CT of the thoracic spine without contrast. HISTORY: Back pain, left leg weakness and numbness COMPARISON: Abdomen CT on 05/29/2009 TECHNIQU E: Multidetector helical axial images were obtained without contrast through t he thoracic spine. The images were reconstructed using bone and soft tissue a lgorithms and were viewed in axial, sagittal and coronal planes. FINDING S: Curvature: Mild increased lower thoracic kyphosis. S-shaped scoliosis. Vertebrae: Mild chronic anterior wedging of the midthoracic vertebral bodies from T6 to T8. Chronic endplate degenerative changes from T5 through T1 0. Degenerative changes: Disc osteophyte complex formation from T5-T6 to T9-T10 without significant canal stenosis. Mild foraminal narrowing at T7-T8 a nd T8-T9 bilaterally due to facet arthrosis. Spinal canal: Unremarkable . Paraspinal soft tissues: Partially visualized gastric lap band. P osterior ribs: Unremarkable. IMPRESSION: 1. No acute thoracic sp ine fractures or dislocations. 2. Mild chronic anterior wedging of the mid /lower thoracic vertebral bodies as detail above. 3. Chronic degenerativ e changes from T5-T6 to T9-T10 as detailed above. 4. Note is made that acu te posttraumatic spinal cord, vascular or ligamentous injury cannot adequately be assessed with CT. Signed by: Dr. French Joseph M.D. on 10/04/2017 2:27 PM Dictated By: FRENCH JOSEPH MD 1148 Transcribed By: AURA on 10/04/17 1427 COPY TO: PAULA VÁSQUEZ MD CT BRAIN [id number] 13:34:00 [place] [address] Patient Name: ARNALDO LAMB MR #: [id number] : 1945 Age/Sex: 72/F Req #: [id number] Adm Physician: Ordered by: JESSICA VÁSQUEZ MD Report #: [id number] Location: Room/Bed: Procedure: [id number] CT/CT BRAIN WO Exam Date: 10/04/17 Exam Time: 1240 REPORT STATUS: Signed ADDENDUM #1 Dose modulation, iterative reconstructio n, and/or weight based adjustment of the mA/kV was utilized to reduce the radi ation dose to as low as reasonably achievable. Signed by: Dr. French Joseph M.D. on 10/25/2017 10:05 AM ORIGINAL REPORT EXAMINATIO N: Head CT HISTORY: Left leg numbness, weakness COMPARISON: None. TECH NIQUE: Multidetector axial images were obtained without contrast from the fora men magnum to the vertex . The images were reconstructed using brain and bone algorithms. Thin section brain images were reformatted into coronal and sagit helder planes. Intravenous contrast: None. Image quality: Motion/streaking art ifact limits the evaluation of the skull base and posterior cranial fossa. FINDINGS: Parenchyma: 1. Cortico-subcortical encephalomalacia in the right medial occipital lobe (lingual gyrus), likely visible upon remote i nfarct in the right ADVERTISING TRAFFIC [employer] distribution and in the right superior cerebellum on t he right superior cerebellar artery distribution. 2. Few scattered white ma tter hypodensities, most likely nonspecific microvascular ischemic changes. 3. No mass or hemorrhage. No CT evidence of acute territorial vascular insult. Extra-axial spaces:No abnormal density. No extra-axial fluid co llections Brain volume: Normal for age. Ventricles: No hydroceph alus or displacement. Arteries: No density suggestive of thrombus. Dural sinuses: No abnormal density. Extra-axial spaces: No abnormal density. Foramen magnum: No mass, Chiari malformation, or basilar invagi nation. Sella: No obvious mass. Nonspecific dystrophic calcification rick ng the posterior aspect of the sella turcica. Paranasal/mastoid sinuses : Imaged portions unremarkable. Skull/Scalp: No lytic or blastic lesions . No fractures. IMPRESSION: 1. No acute intracranial hemorrhage or cortical infarcts. 2. 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 Signed by: Dr. French Joseph M.D. on 10/04/2017 1:43 PM Dicta isela By: FRENCH JOSEPH MD 100 5 Transcribed By: AURA on 10/04/17 1343 COPY TO: JESSICA VÁSQUEZ MD Urine [id number] 13:19:00* Test Item Value Reference Range Interpretation Comments Urine WBC (test code = 5821-4) 50- 0-5 H [facility] [id number] 13:19:00* Test Item Value Reference Range Interpretation Comments Urine RBC (test code = 90195-7) 11-20 0-5 H [facility] [id number] 13:19:00* Test Item Value Reference Range Interpretation Comments Urine Bacteria (test code = 42178-4) MODERATE NONE H [facility] Epithelial [id number] 13:19:00 * Test Item Value Reference Range Interpretation Comments Urine Epithelial Cells (test code = 41021-1) FEW NONE [facility] [id number] 13:03:00* Test Item Value Reference Range Interpretation Comments Urine Color (test code = 5778-6) YELLOW YELLOW [facility] [id number] 13:03:00* Test Item Value Reference Range Interpretation Comments Urine Clarity (test code = 65687-7) CLOUDY CLEAR H [facility]wood[facility] Specific Jusosbx0332-01-85 13:03:00 * Test Item Value Reference Range Interpretation Comments Urine Specific [place] (test code = 5811-5) 1.025 1.010-1.02 5 [facility] [id number] 13:03:00* Test Item Value Reference Range Interpretation Comments Urine pH (test code = 36181-1) 5 5-7 [facility] Leukocyte Sgpjwfpv1474-73-61 13:03:00* Test Item Value Reference Range Interpretation Comments Urine Leukocyte Esterase (test code = 5799-2) 2+ NEGATIVE H [facility] Bqdbcff1821-69-83 13:03:00* Test Item Value Reference Range Interpretation Comments Urine Nitrite (test code = 55981-6) NEGATIVE NEGATIVE [facility] Jnhkovo5876-50-90 13:03:00* Test Item Value Reference Range Interpretation Comments Urine Protein (test code = 5804-0) 2+ NEGATIVE H [facility]wood[facility] Glucose (UA)2017-10-04 13:03:00* Test Item Value Reference Range Interpretation Comments Urine Glucose (UA) (test code = 2349-9) 2+ NEGATIVE H [facility]wood[facility] [id number] 13:03:00* Test Item Value Reference Range Interpretation Comments Urine Ketones (test code = 80288-1) NEGATIVE NEGATIVE [facility] Lhbflbwehdwe6201-16-28 13:03:00* Test Item Value Reference Range Interpretation Comments Urine Urobilinogen (test code = 05225-8) 0.2 0.2-1 [facility]wood[facility] Hagusedyf2893-60-64 13:03:00* Test Item Value Reference Range Interpretation Comments Urine Bilirubin (test code = 1978-6) NEGATIVE NEGATIVE [facility]wood[facility] Doqva0389-40-13 13:03:00* Test Item Value Reference Range Interpretation Comments Urine Blood (test code = 53312-9) 2+ NEGATIVE H [facility] KingwoodCreatine Kinase [id number] 12:51:00* Test Item Value Reference Range Interpretation Comments Creatine Kinase MB (test code = 84639-3) 2.60 0-5.0 [facility] KingwoodTroponin [id number] 12:51:00* Test Item Value Reference Range Interpretation Comments Troponin I (test code = DMA9647) 0.012 0-0.300 [facility] Owwfi5976-34-73 12:48:00* Test Item Value Reference Range Interpretation Comments Sodium Level (test code = 2951-2) 129 136-145 L [facility]woodPotassium Wltlx0161-31-91 12:48:00* Test Item Value Reference Range Interpretation Comments Potassium Level (test code = 2823-3) 4.3 3.5-5.1 [facility] KingwoodChloride Wmymg9253-25-44 12:48:00* Test Item Value Reference Range Interpretation Comments Chloride Level (test code = 2075-0) 95 98-107 L [facility] KingwoodCarbon Dioxide Xtoza3626-61-62 12:48:00* Test Item Value Reference Range Interpretation Comments Carbon Dioxide Level (test code = 2028-9) 21 22-29 L [facility] KingwoodAnion Oyq1757-53-51 12:48:00* Test Item Value Reference Range Interpretation Comments Anion Gap (test code = 04514-1) 17.3 8-16 H [facility] KingwoodBlood Urea Rpgywkjz0334-83-02 12:48:00* Test Item Value Reference Range Interpretation Comments Blood Urea Nitrogen (test code = 3094-0) 79 7-26 H [facility] KingwoodCreatinine2018-07-30 12:48:00* Test Item Value Reference Range Interpretation Comments Creatinine (test code = 2160-0) 3.35 0.57-1.11 H [facility] KingwoodBUN/Creatinine Mdzoj8779-84-03 12:48:00* Test Item Value Reference Range Interpretation Comments BUN/Creatinine Ratio (test code = 3097-3) 24 6-25 [facility] KingwoodEstimat Glomerular Filtration Rate 2017-10-04 12:48:00* Test Item Value Reference Range Interpretation Comments Estimat Glomerular Filtration Rate (test code = 46917-1) 13 >60 L Ranges were taken from the National Kidney Disease Education Program and the [facility] Kid[facility] Foundation literature.Reference ranges:60 or greater: Pagkip10-78 ( for 3 consecutive months): Chronic kidney disease 15 or less: Kidney failureMemorial Hermann Surgical Hospital KingwoodGlucose Laudv7975-90-17 12:48:00* Test Item Value Reference Range Interpretation Comments Glucose Level (test code = FPZ1905) 441 74-118 HH Results called to ISHA FUNEZ RN at 1247 on 10/04/17 by Rusty Massey. RB OK.This test has been rerun and double checked for accuracy.[facility] KingwoodCalcium Cevpu8730-43-34 12:48:00* Test Item Value Reference Range Interpretation Comments Calcium Level (test code = 28049-8) 8.2 8.4-10.2 L [facility] KingwoodTotal Vcieveaym8097-34-20 12:48:00* Test Item Value Reference Range Interpretation Comments Total Bilirubin (test code = 1975-2) 0.6 0.2-1.2 [facility] KingwoodAspartate Amino Transf (AST/SGOT) 2017-10-04 12:48:00* Test Item Value Reference Range Interpretation Comments Aspartate Amino Transf (AST/SGOT) (test code = Aspartate Amino Transf (AST/SGOT)) 26 5-34 [facility] KingwoodAlanine Aminotransferase (ALT/SGPT) 2017-10-04 12:48:00* Test Item Value Reference Range Interpretation Comments Alanine Aminotransferase (ALT/SGPT) (test code = 1742-6) 23 0-55 [facility] KingwoodTotal Ugoolhh9960-02-60 12:48:00* Test Item Value Reference Range Interpretation Comments Total Protein (test code = 2885-2) 6.2 6.5-8.1 L [facility] KingwoodAlbumin2018-07-30 12:48:00* Test Item Value Reference Range Interpretation Comments Albumin (test code = 1751-7) 2.3 3.5-5.0 L [facility] KingwoodGlobulin2018-07-30 12:48:00* Test Item Value Reference Range Interpretation Comments Globulin (test code = 23114-8) 3.9 2.3-3.5 H [facility] KingwoodAlbumin/Globulin Embmr8974-57-99 12:48:00 * Test Item Value Reference Range Interpretation Comments Albumin/Globulin Ratio (test code = 1759-0) 0.6 0.8-2.0 L [facility] KingwoodAlkaline Ytcfpsgdigs4469-73-84 12:48:00* Test Item Value Reference Range Interpretation Comments Alkaline Phosphatase (test code = 6768-6) 90 40-150 [facility] KingwoodCreatine Otesdk3193-42-97 12:48:00* Test Item Value Reference Range Interpretation Comments Creatine Kinase (test code = 2157-6) 123 29-168 [facility] KingwoodWhite Blood Udjlb8072-18-72 12:32:00* Test Item Value Reference Range Interpretation Comments White Blood Count (test code = 6690-2) 11.51 4.8-10.8 H [facility] KingwoodRed Blood Trncs4518-66-18 12:32:00* Test Item Value Reference Range Interpretation Comments Red Blood Count (test code = 789-8) 2.44 3.6-5.1 L [facility] KingwoodHemoglobin2018-07-30 12:32:00* Test Item Value Reference Range Interpretation Comments Hemoglobin (test code = 39673-8) 8.3 12.0-16.0 L [facility] KingwoodHematocrit2018-07-30 12:32:00* Test Item Value Reference Range Interpretation Comments Hematocrit (test code = 4544-3) 24.8 34.2-44.1 L [facility] KingwoodMean Corpuscular Vriudg2144-36-38 12:32:00* Test Item Value Reference Range Interpretation Comments Mean Corpuscular Volume (test code = 787-2) 101.6 81-99 H [facility] KingwoodMean Corpuscular Qznhcycvvl3220-74-95 12:32:00* Test Item Value Reference Range Interpretation Comments Mean Corpuscular Hemoglobin (test code = 785-6) 34.0 28-32 H [facility] KingwoodMean Corpuscular Hemoglobin Concent 2017-10-04 12:32:00* Test Item Value Reference Range Interpretation Comments Mean Corpuscular Hemoglobin Concent (test code = 786-4) 33.5 31-35 [facility] KingwoodRed Cell Distribution Ezyaw6563-35-24 12:32:00* Test Item Value Reference Range Interpretation Comments Red Cell Distribution Width (test code = 56777-0) 16.3 11.7 -14.4 H [facility] KingwoodPlatelet Doixs3928-70-26 12:32:00* Test Item Value Reference Range Interpretation Comments Platelet Count (test code = 777-3) 161 140-360 [facility] KingwoodNeutrophils (%) (Auto)2017-10-04 12:32:00 * Test Item Value Reference Range Interpretation Comments Neutrophils (%) (Auto) (test code = 92699-2) 83.9 38.7-80.0 H [facility] [facility] (Auto)2017-10-04 12:32:00 * Test Item Value Reference Range Interpretation Comments Lymphocytes (%) (Auto) (test code = 736-9) 6.2 18.0-39.1 L [facility] (Auto)2017-10-04 12:32:00* Test Item Value Reference Range Interpretation Comments Monocytes (%) (Auto) (test code = 5905-5) 6.0 4.4-11.3 [facility] (Auto)2017-10-04 12:32:00 * Test Item Value Reference Range Interpretation Comments Eosinophils (%) (Auto) (test code = 713-8) 0.2 0.0-6.0 [facility] (Auto)2017-10-04 12:32:00* Test Item Value Reference Range Interpretation Comments Basophils (%) (Auto) (test code = 706-2) 0.2 0.0-1.0 [facility] %2017-10-04 12:32:00* Test Item Value Reference Range Interpretation Comments IM GRANULOCYTES % (test code = IM GRANULOCYTES %) 3.5 0.0- 1.0 H [facility]woodNeutrophils # (Auto)2017-10-04 12:32:00* Test Item Value Reference Range Interpretation Comments Neutrophils # (Auto) (test code = 751-8) 9.7 2.1-6.9 H [facility]woodLymphocytes # (Auto)2017-10-04 12:32:00* Test Item Value Reference Range Interpretation Comments Lymphocytes # (Auto) (test code = 44001-7) 0.7 1.0-3.2 L [facility] # (Auto)2017-10-04 12:32:00* Test Item Value Reference Range Interpretation Comments Monocytes # (Auto) (test code = 742-7) 0.7 0.2-0.8 [facility] # (Auto)2017-10-04 12:32:00* Test Item Value Reference Range Interpretation Comments Eosinophils # (Auto) (test code = 711-2) 0.0 0.0-0.4 [facility] # (Auto)2017-10-04 12:32:00* Test Item Value Reference Range Interpretation Comments Basophils # (Auto) (test code = 704-7) 0.0 0.0-0.1 [facility]woodAbsolute Immature Granulocyte (auto 2017-10-04 12:32:00* Test Item Value Reference Range Interpretation Comments Absolute Immature Granulocyte (auto (madeleine t code = Absolute Immature Granulocyte (auto) 0.40 0-0.1 H [facility]
--- OUTSIDE RECORDS SUMMARY | 2019-08-07 18:04 | XMS REPORT | Continuity of Care Document ---
Author Author [employer], ARNALDO Khan [employer] Address Unknown Phone Unavailable Care Team Providers Care Video Presentation Operator Name Role Phone [employer] Unavailable Un available Problems Problem Status Onset Date Classification Date Reported Comments Source Vitamin D deficiency Active Diagnosis 06/05/2019 Breanne Najam Left lateral knee pain Active Diagnosis 06/05/2019 Breanne Najam Counseling NOS Active Diagnosis 06/05/2019 Breanne Najam Neuropathy of right hand Active Diagnosis 06/05/2019 Breanne Najam Neuropathy of left hand Active Diagnosis 06/05/2019 Breanne Najam Left foot drop Active Diagnosis 06/05/2019 Breanne Najam Flare of rheumatoid arthritis Active Problem Breanne Najam 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 Active Diagnosis 0 06/05/2019 Breanne Najam Post-menopausal Active Diagnosis 11/03/2017 Breanne Najam Pain in right hand Active Diagnosis 11/03/2017 Breanne Najam Pain of right shoulder region Active Diagnosis 1 04/04/2017 Breanne Najam Pain of left hand Active Diagnosis 11/03/2017 Breanne Naaldom Medications Medication Details Route Status Patient Instructions Ordering Provider Order Date Source Lyrica 1 capsule Orally Active 100 MG Orally Twice a d ay [facility] 05/03/2018 Breanne Najam Chlorzoxazone 1 tab(s) as need ed Orally Active 500 MG Orally twice daily Naja 02/07/2018 Breanne Najam Humira Pen 0.8 ml Subcutaneous Active 40 MG/0.8ML Subcutaneou s every 2 weeks Naja 10/22/2017 Breanne Najam Enbrel SureClick 1 ml Subcutaneous Active 50 MG/ML Subcutaneous Once a week Naja 07/27/2017 Breanne Najam PredniSONE 1 tab(s) with food as needed Orally Active 10 mg Orally Once a day Naja 07/27/2017 Breanne Najam Methocarbamol 1.5 tablets Orally Active 500 MG Orally every 4 h rs Najam 07/27/2017 Breanne Najam Humira Pen 0.8 ml Subcutaneous Active 40 MG/0.8ML Subcutaneou s every 2 weeks Naja 07/27/2017 Breanne Najam Alendronate Sodium 1 tablet Orally Active 70 MG Orally Once a week Najam 05/13/2017 Breanne Najam Ergocalciferol 1 capsule Orally Active 41233 UNIT Orally once weekly Najam 05/13/2017 Breanne Najam Enbrel SureClick 1 ml Subcutaneous Active 50 MG/ML Subcutaneous Once a week Najam 05/13/2017 Breanne Najam Humira Pen 0.8 ml Subcutaneous Active 40 MG/0.8ML Subcutaneou s every 2 weeks Najam Breanne Najam Ergocalciferol 1 capsule Orally Active 09306 UNIT Orally once weekly Najam Breanne Najam Zantac 75 1 tablet as needed Orally Active 75 MG Orally Twice a day Najam Breanne Najam Levothyroxine Sodium 1 tablet on an empty stomach in the morning Orally Active 112 MCG Orally Once a day Gabriella m Breanne Najam Folic Acid 1 tablet Orally Active 400 MCG Orally Once a d ay Najam Sabee n Najam Losartan Potassium 1 tablet Orally Active 100 MG Orally Once a day Najam Breanne Najam Alendronate Sodium 1 tablet Orally Active 70 Orally Once a week Najam Breanne Najam Oxycodone-Acetaminophen 1 tabl et as needed Orally Active 10-325 MG Orally every 6 hrs Najam Breanne Najam Lantus not defined Subcutaneous Active 100 UNIT/ML Subcutaneou s Najam Breanne Najam Celecoxib 1 capsule with food Orally Active 200 MG Orally Once a day Najam Breanne Najam Victoza not defined Subcutaneous Active 18 MG/3ML Subcutaneous Najam Breanne Najam Atorvastatin Calcium 1 tablet Orally Active 20 MG Orally Once a day Najam Breanne Najam Morphine Sulfate 1 tablet as n eeded Orally Active 15 MG Orally every 4 hrs Najam Breanne Najam Methocarbamol 1.5 tablets Orally Active 500 MG Orally every 4 h rs Najam Breanne Najam Fentanyl 1 patch to skin Transdermal Active 25 MCG/HR Transdermal Najam Breanne Najam Lyrica 1 capsule Orally Active 100 MG Orally Twice a d ay Najam Sabee n Najam Macrobid 1 capsule with food Orally Active 100 MG Orally every 12 hrs Najam Breanne Najam Enbrel SureClick 1 ml Subcutaneous Active 50 MG/ML Subcutaneous Najam Breanne Najam Allergies, Adverse Reactions, Alerts Substance Category Reaction Severity Reaction type Status Date Reported Comments Source Codeine Adverse Reaction Info Not Available Adverse Reaction Active 11/02/2017 Breanne Najam Amoxicillin Adverse Reaction Info Not Available Adverse Reaction Active 05/30/2019 Breanne Najam Immunizations No Data Provided for This Section Results No Data Provided for This Section Pathology Reports No Data Provided for This Section Diagnostic Reports No Data Provided for This Section Consultation Notes No Data Provided for This Section Discharge Summaries No Data Provided for This Section History and Physicals No Data Provided for This Section Vital Signs Vital Sign Value Date Comments Source Height 60 0 09/19/2018 Breanne Najam Diastolic (mm Hg) 69 09/19/2018 Breanne Najam Systolic (mm Hg) 151 09/19/2018 Breanne Najam Weight 155 09/19/2018 Breanne Najam Height 60 0 05/03/2018 Breanne Najam Diastolic (mm Hg) 68 05/03/2018 Breanne Najam Systolic (mm Hg) 152 05/03/2018 Breanne Najam Weight 160 05/03/2018 Breanne Najam Height 60 1 04/03/2017 Breanne Najam Diastolic (mm Hg) 69 02/01/2018 Breanne Najam Systolic (mm Hg) 144 02/01/2018 Breanne Najam Weight 162.6 02/01/2018 Breanne Najam Height 60 0 11/02/2017 Breanne Najam Diastolic (mm Hg) 65 11/02/2017 Breanne Najam Systolic (mm Hg) 141 11/02/2017 Breanne Najam Weight 154 11/02/2017 Breanne Najam Height 60 0 07/27/2017 Breanne Najam Diastolic (mm Hg) 63 07/27/2017 Breanne Najam Systolic (mm Hg) 134 07/27/2017 Breanne Najam Weight 161.6 07/27/2017 Breanne Najam Height 60 0 05/13/2017 Breanne Najam Diastolic (mm Hg) 64 05/13/2017 Breanne Najam Systolic (mm Hg) 108 05/13/2017 Breanne Najam Weight 172 05/13/2017 Breanne Najam Height 60 0 04/29/2017 Breanne Najam Diastolic (mm Hg) 68 04/29/2017 Breanne Najam Systolic (mm Hg) 139 04/29/2017 Breanne Najam Weight 173 04/29/2017 Breanne Najam Encounters No Data Provided for This Section Procedures No Data Provided for This Section Assessment and Plan No Data Provided for This Section Plan of Care No Data Provided for This Section Social History No Data Provided for This Section Family History No Data Provided for This Section Advance Directives No Data Provided for This Section Functional Status No Data Provided for This Section
--- OUTSIDE RECORDS SUMMARY | 2019-08-07 18:04 | XMS REPORT ---
Author Author Mary Gamboa Organization [employer] Address Unknown Phone Unavailable Care Team Providers Care Search Marketing Specialist Name Role Phone Breanne Gamboa CP Unavailable Allergies, Adverse Reactions, Alerts Substance Reaction Event Type Codeine Info Not Available Drug Allergy Amoxicillin Info Not Available Drug Allergy Problems Problem Type Condition Code Onset Dates Condition Statu s Assessment Post-menopausal Z78.0 Active Assessment Left lateral knee pain M25.562 Activ e Assessment Counseling NOS Z71.9 Active Assessment Flare of rheumatoid arthritis M06.9 Active Assessment Vitamin D deficiency E55.9 Active Problem 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 Problem Vitamin D deficiency E55.9 Active Problem Flare of rheumatoid arthritis M06.9 Active Assessment Pain in right hand M79.641 Active Assessment Pain of right shoulder region M25.511 Active Assessment 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 Assessment Pain of left hand M79.642 Active Medications Medication Code System Code Instructions Start Date End Date Status Dosage Atorvastatin Calcium ND 41925429343 20 MG Orally Once a day Active 1 tablet Humira Pen [facility] 12405790643 40 MG/0.8ML Subcutaneous every 2 we eks Oct 22, 2017 Apr 20, 2018 Active 0.8 ml Levothyroxine Sodium ND 52687048016 112 MCG Orally Once a day Active 1 tablet on an empty stomach in the morning Victoza ND 16859266325 18 MG/3ML Subcutaneous Acti ve not defined Losartan Potassium ND 09622777752 100 MG Orally Once a day Active 1 tablet Celecoxib ND 53484697694 200 MG Orally Once a day A ctive 1 capsule with food Alendronate Sodium [facility] 23399761660 70 Orally Once a week Active 1 tablet Folic Acid ND 62206030801 400 MCG Orally Once a day Active 1 tablet Lantus ND 40399098496 100 UNIT/ML Subcutaneous Ac tive not defined Humira Pen ND 31750135575 40 MG/0.8ML Subcutaneous every 2 weeks Active 0.8 ml Zantac 75 [facility] 29542632437 75 MG Orally Twice a day A ctive 1 tablet as needed Oxycodone-Acetaminophen [facility] 97401378252 10-325 MG Orally every 6 hrs Active 1 tablet as needed Ergocalciferol [facility] 39943017625 65843 UNIT Orally once weekly Active 1 capsule Vital Signs Date/Time: Nov 02, 2017 Height 60 in Blood Pressure Diastolic 65 mm Hg Blood Pressure Systolic 141 mm Hg Weight 154 lbs Results No Known Results Summary Purpose [employer] Submission
--- OUTSIDE RECORDS SUMMARY | 2019-08-07 18:04 | XMS REPORT ---
Author Author Mary Gamboa Organization [employer] Address Unknown Phone Unavailable Care Team Providers Care Basket Filler Name Role Phone Breanne Gamboa CP Unavailable [...] involvement with positive rheumatoid factor M05.79 Active Medications Medication Code System Code Instructions Start Date End Date Status Dosage Humira Pen [facility] 27973917415 40 MG/0.8ML Subcutaneous every 2 we eks July 27, 2017 Apr 11, 2018 Active 0.8 ml Results No Known Results Summary Purpose [employer] Submission
[2019-08-07] MEDS ORDERED: MORPHINE SULFATE INJ 4 MG/ML INJ 1ML IV STA (18:58)
[2019-08-07] MEDS ORDERED: SODIUM CHLORIDE 0.9% 1000ML 1,000 ML IV STA ×2 (18:58→22:02)
[2019-08-07] MEDS ORDERED: ONDANSETRON HCL INJ 2MG/ML 2ML 2 MG/ML VIAL IV STA ×2 (18:58→19:48)
--- NOTE | 2019-08-07 18:59 | Emergency Department Note ---
History of Present Illnes History of Present Illness Chief Complaint: Abdominal Complaints History of Present Illness This is a 74 year old female presents to the ED for abdominal pain with f/c/n/v since 3 days prior. Patient seen in triage ill appearing. . Historian: Patient, Family Member Arrival Mode: Car History limited by: language barrier Onset (how long ago): week(s) (1) Severity: moderate Duration (how long): day(s) (3) Timing of current episode: constant Progression: worsening Context: recent illness, recent immobilization Relieving factors: none Exacerbating factors: none Associated symptoms: fever/chills, loss of appetite, malaise, nausea/vomiting Treatments prior to arrival: none Past Medical/Family History Physician Review I have reviewed the patient's past medical and family history. Any updates have been documented here. Past Medical History Recent Fever: No Clinical Suspicion of Infectio: No New/Unexplained Change in Ment: No Past Medical History: Hypertension, Diabetes, Hypothyroidism, Cancer, GERD, Hyp erlipedemia, Chronic Kidney Disease Other Medical History: HIGH CHOLESTEROL CHRONIC BACK PAIN kidney problems Past Surgical History: Back Surgery, Colon Resection Other Surgery: INTESTINAL BLOCKAGE LAMENECTOMY MYLENOMA REMOVED Social History Smoking Cessation: Never Smoker Alcohol Use: None Any Illegal Drug Use: No Family History Family history of heart diseas: No Other Last Tetanus: UTD Review of Systems Review of Systems Constitutional: no symptoms, malaise EENTM: no symptoms Cardiovascular: no symptoms Respiratory: no symptoms Gastrointestinal: abdominal pain, nausea, vomiting Genitourinary: no symptoms Musculoskeletal: no symptoms Neurological: no symptoms Psychological: no symptoms Endocrine: no symptoms Hematological/Lymphatic: no symptoms Review of other systems All other systems reviewed and negative. Physical Exam Related Data Allergies: Coded Allergies: codeine (Verified Allergy, Mild, HICCUPS, 08/07/19) amoxicillin (Verified Allergy, Unknown, 08/07/19) Triage Vital Signs Vital Signs Date Time Temp Pulse Resp B/P (MAP) Pulse Ox O2 Delivery O2 Flow Rate FiO2 08/07/19 18:10 98.0 98 20 104/60 98 Physical Exam CONSTITUTIONAL Constitutional: distressed, ill appearing HENT HENT: normocephalic, atraumatic, oropharynx clear/moist, mucosae dry, nose normal HENT L/R: left ext ear normal, right ext ear normal EYES Eyes: PERRL, conjunctivae normal NECK Neck: ROM normal PULMONARY Pulmonary: effort normal, breath sounds normal CARDIOVASCULAR Cardiovascular: regular rhythm, heart sounds normal, capillary refill normal, normal rate GASTROINTESTINAL Abdominal: soft, bowel sounds normal, tender (generalized) GENITOURINARY Genitourinary: exam deferred SKIN Skin: warm, dry MUSCULOSKELETAL Musculoskeletal: ROM normal NEUROLOGICAL Neurological: alert, oriented x 3, no gross motor or sensory deficits PSYCHOLOGICAL Psychological: mood/affect normal, judgement normal Results Laboratory Lab results reviewed: Yes Laboratory comments CBC: wbc elevated 25.8, hgb 8.5 CMP: lactic acid elevated, Cr 1.65, Na 132, UA : (+) bacteria Imaging Imaging results reviewed: Yes Impressions [place] [address] Patient Name: ARNALDO LAMB MR #: [id number] : 1945 Age/Sex: 74/F Req #: [id number] Adm Physician: Ordered by: BILL WYNN DO Report #: [id number] Location: ER Room/Bed: Procedure: CT/CT ABDOMEN/PELVIS WO Exam Date: Exam Time: REPORT STATUS: Signed CT Abdomen And Pelvis Without IV Contrast INDICATION: Abdominal pain, nausea and vomiting TECHNIQUE: 5 mm collimation axial images obtained from the diaphragm to the level of the pubic symphysis without nonionic intravenous contrast. Oral contrast was administered. RADIATION DOSE: Total DLP: 379.5 mGy*cm Estimated effective dose: (DLP x 0.015 x size factor) mSv CTDIvol has been reviewed. It is below the limits set by the Radiation Protocol Committee (RPC). Dose reduction techniques used: Automated exposure control, adjustment of the mAs and/or kVp according to patient size, standardized low-dose protocol, and/or iterative reconstruction technique. COMPARISON: CT thoracolumbar spine 10/04/2017. Report of CT of the abdomen/pelvis performed 07/02/2009. Images are not available. ABDOMEN FINDINGS: Lung Bases: Small posterior layering effusion in the right posterior costophrenic angle. There are scattered nodules in the lung bases. For example a nodule in the posterior basal segment of the right lower lobe measures 7 mm. The heart is normal in size. Liver: Numerous solid hypoattenuating masses throughout the parenchyma. One mass in the left lobe measures approximately 4.0 x 5.6 cm. Mild lobulation of the hepatic capsule suggestive of cirrhosis. Gallbladder: Not visualized and may be absent or contracted. No ductal dilatation. Pancreas: There is fullness of the pancreas body. The tail is atrophic. Pancreas ductal dilatation is suspected in the visualized portion of the tail. Spleen: Normal in size. No mass. Adrenal Glands: No evidence for mass. Kidneys: Right Kidney: Partially duplicated collecting system. No calculus or hydronephrosis. No cortical mass. Left Kidney: Partially duplicated collecting system. No calculus. No cortical mass or hydronephrosis. Lymph Nodes: No defined abdominal or retroperitoneal lymph nodes. Aorta: Diffusely calcified but normal in diameter PELVIS FINDINGS: Bowel: Stomach: A laparoscopically placed gastric band is in appropriate orientation. The stomach is not dilated. Small Bowel: Enteric contrast present throughout. No mural thickening or dilatation. Large Bowel: No enteric contrast. No dilatation. No focal mural thickening. Appendix: Not visualized. Bladder: Normal. Uterus: Absent. No adnexal mass. Lymph Nodes: No enlarged mesenteric, pelvic, or inguinal lymph nodes. Peritoneum/retroperitoneum: Small amount of perihepatic ascites and fluid along the paracolic ureters. Small amount of pelvic ascites. No free air. Bones: The bones are diffusely demineralized. Pedicle screws and vertical stabilizing bars in L3 and L4 from laminectomy and fusion are redemonstrated. The hardware appears intact. Grade 1 anterolisthesis of L1 on L2 is stable. Mild superior endplate compression deformity of L4 is stable. No destructive lesions. Soft tissues: Small umbilical hernia containing fat and a small amount of fluid. IMPRESSION: 1. Multiple intrahepatic masses suggestive of metastases. There is suggestion of cirrhosis. 2. Diminutive pancreas with suggestion of a mass in the pancreas body resulting in upstream ductal dilatation. 3. Gastric band in appropriate orientation. No evidence for bowel obstruction or inflammation. 4. Multiple pulmonary nodules are concerning for metastases. 5. Small right pleural effusion and abdominopelvic ascites. Signed by: Dr. 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 tracings: reviewed Rhythm: sinus rhythm Rate: normal BPM: 92 QRS axis: left ST segments normal: Yes T wave depression: V1, V2 T waves flattening: aVL Clinical Impression: non-specific ECG Critical Care Time Total Critical Care Time (min): 31 Critcal care necessary due to: sepsis Assessment & Plan Assessment & Plan Final Impression: (1) SEVERE SEPSIS WITHOUT SEPTIC SHOCK (2) MALIGNANT NEOPLASM OF PANCREATIC DUCT (3) SOLITARY PULMONARY NODULE (4) NEOPLASM OF UNCERTAIN BEHAVIOR OF LIVER, GB & BILE DUCT (5) URINARY TRACT INFECTION, SITE NOT SPECIFIED Assessment & Plan CT abd/pelvis Septic w/u Patient to be admitted for IV abx and evaluation of new findings of metastasis. Depart Disposition: ADMITTED Last Vital Signs Date Time Temp Pulse Resp B/P (MAP) Pulse Ox O2 Delivery O2 Flow Rate FiO2 08/07/19 18:10 98.0 98 20 104/60 98 Home Meds Reported Medications Dulaglutide (Trulicity) 0.75 Mg/0.5 Ml Pen.injctr, SQ WEEKLY 08/08/19 Esomeprazole Magnesium (NEXIUM) 40 Mg Capsule.dr, 40 MG PO DAILY, CAP PROTONIX THERAPEUTIC SUBSTITUTE FOR NEXIUM PER [facility] 08/08/19 Morphine Sulfate (MORPHINE SULFATE ER) 30 Mg Tablet.er, 15 MG PO DAILY, TAB 08/08/19 Duloxetine Hcl (CYMBALTA) 30 Mg Capsule.dr, 60 MG PO DAILY, #30 CAP 08/08/19 Calcium Carb/Vit D3/Minerals (CALTRATE PLUS TABLET) 1 Each Tablet, 1 TAB PO DAILY 05/03/16 Lactobac Cmb #3/Fos/Pantethine (PROBIOTIC & ACIDOPHILUS CAP) 1 Each Capsule, 1 CAP PO DAILY 05/03/16 Acetaminophen (ACETAMINOPHEN) 325 Mg Tablet, 650 MG PO Q4HR PRN for PAIN for 5 Days, TAB 05/03/16 Oxycodone Hcl/Acetaminophen (OXYCODONE-ACETAMINOPHEN 5-325) 1 Each Tablet, 10- 325 EACH PO Q6H for PAIN, TAB 05/03/16 Folic Acid (FOLIC ACID) 1 Mg Tablet, 1 MG PO DAILY, #30 TAB 05/03/16 [Losartan Hctz] No Conflict Check, 100 MG PO DAILY 05/03/16 Atorvastatin Calcium (ATORVASTATIN CALCIUM) 20 Mg Tablet, 20 MG PO HS, #30 TAB 05/03/16 Levothyroxine Sodium (LEVOTHYROXINE SODIUM) 112 Mcg Tablet, 112 MCG PO DAILY, #30 TAB 05/03/16 Discontinued Reported Medications Sulfamethoxazole/Trimethoprim (SULFAMETHOXAZOLE-TMP DS TABLET) 1 Each Tablet, #10 10/04/17 Celecoxib* (CELEBREX*) 100 Mg Capsule, #30 10/04/17 Baclofen (BACLOFEN) 10 Mg Tablet, 10 MG PO TID, #90 TAB 05/03/16 Methotrexate Sodium (METHOTREXATE) 2.5 Mg Tablet, 5 MG PO UD, #30 TAB WEEKLY 05/03/16 Medications in the ED Sodium Chloride 1,000 ml @ 0 mls/hr Q0M STAT IV Last administered on 08/07/19at 21:30; Admin Dose 1,000 MLS/HR; Start 08/07/19 at 18:58; Stop 08/07/19 at 18:59 Morphine Sulfate 4 mg ONCE STAT IV Last administered on 08/07/19at 21:35; Admin Dose 4 MG; Start 08/07/19 at 18:58; Stop 08/07/19 at 18:59 Ondansetron HCl 4 mg ONCE STAT IV Last administered on 08/07/19at 21:33; Admin Dose 4 MG; Start 08/07/19 at 18:58; Stop 08/07/19 at 18:59 Morphine Sulfate 4 mg ONCE PRN IV SEVERE PAIN (7-10) Last administered on 08/08/19at 04:52; Admin Dose 4 MG; Start 08/07/19 at 20:00; Stop 08/14/19 at 19:59 Ondansetron HCl 4 mg NOW STAT IV Last administered on 08/08/19at 04:50; Admin Dose 4 MG; Start 08/07/19 at 19:48; Stop 08/07/19 at 19:49 Diatrizoate Meglum/ Diatrizoate Sod 30 ml STK-MED ONCE PO ; Start 08/07/19 at 21:13; Stop 08/07/19 at 21:07; Status DC Levofloxacin/ Dextrose 150 ml @ 100 mls/hr DAILY IV Last administered on 08/07/19at 22:31; Admin Dose 100 MLS/HR; Start 08/07/19 at 22:02; Stop 08/14/19 at 22:01 Sodium Chloride 1,000 ml @ 0 mls/hr Q0M STAT IV Last administered on 08/07/19at 22:07; Admin Dose 1,000 MLS/HR; Start 08/07/19 at 22:02; Stop 08/07/19 at 22:03 Ondansetron HCl 4 mg Q4H PRN IV NAUSEA AND VOMITING; Start 08/07/19 at 22:15; Stop 09/06/19 at 22:14 Sodium Chloride 1,000 ml @ 125 mls/hr Q8H IV Last administered on 08/08/19at 01:38; Admin Dose 125 MLS/HR; Start 08/07/19 at 22:15; Stop 09/06/19 at 22:14 Morphine Sulfate 4 mg Q4H PRN IV SEVERE PAIN (7-10); Start 08/07/19 at 22:30; Stop 08/14/19 at 22:29 BILL WYNN 1, 2020 18:59
[2019-08-07 20:36] LABS: ALBUMIN 1.8 g/dL (3.5-5.0); ALBUMIN/GLOBULIN RATIO 0.5 (0.8-2.0); ANION GAP 14.7 mmol/L (8-16); CREATININE, SERUM 1.65 mg/dL (0.57-1.11); POTASSIUM 4.7 mmol/L (3.5-5.1)
[2019-08-07] MEDS ORDERED: DIATRIZOATE MEGL/DIATRIZOA SOD 30 ML BTL PO ONE (21:13)
[2019-08-07 21:28] LABS: HEMOGLOBIN 8.5 g/dL (12.0-16.0); RED BLOOD COUNT 2.43 x10e6/uL (3.6-5.1)
[2019-08-07 21:29] LABS: EOSINOPHILS % 0.8 % (0.0-6.0); HEMATOCRIT 26.8 % (34.2-44.1); LYMPHOCYTES % 1.6 % (18.0-39.1); MEAN CORPUSCULAR HGB CONC 31.7 g/dL (31-35); MEAN CORPUSCULAR VOLUME 110.3 fL (81-99); MONOCYTES % 1.7 % (4.4-11.3); NEUTROPHILS % 23.1 % (38.7-80.0); PLATELET COUNT 287 x10e3/uL (140-360); RED CELL DISTRIBUTION WIDTH 14.3 % (11.7-14.4)
[2019-08-07 21:33] LABS: COLOR,URINE YELLOW (YELLOW)
[2019-08-07 21:34] LABS: BILIRUBIN,URINE NEGATIVE (NEGATIVE); CLARITY,URINE CLOUDY (CLEAR); KETONES,URINE NEGATIVE (NEGATIVE); LEUKOCYTE ESTERASE ,URINE SMALL (NEGATIVE); NITRITE,URINE NEGATIVE (NEGATIVE); PROTEIN,URINE DIPSTICK NEGATIVE (NEGATIVE); URINE UROBILINOGEN 0.2 mg/dL (0.2 - 1)
[2019-08-07 21:46] LABS: BACTERIA,URINE MANY /HPF; EPITHELIAL CELLS,URINE FEW /LPF; TRANSITIONAL EPI CELLS,URINE FEW
[2019-08-07] MEDS ORDERED: LEVOFLOXACIN 750MG/D5W 150ML 150 ML IV SCH (22:02)
[2019-08-07] MEDS ORDERED: ONDANSETRON HCL INJ 2MG/ML 2ML 2 MG/ML VIAL IV PRN (22:15)
--- NOTE | 2019-08-07 23:26 | Diagnostic Imaging Report ---
CT Abdomen And Pelvis Without IV Contrast INDICATION: Abdominal pain, nausea and vomiting TECHNIQUE: 5 mm collimation axial images obtained from the diaphragm to the level of the pubic symphysis without nonionic intravenous contrast. Oral contrast was administered. RADIATION DOSE: Total DLP: 379.5 mGy*cm Estimated effective dose: (DLP x 0.015 x size factor) mSv CTDIvol has been reviewed. It is below the limits set by the Radiation Protocol Committee (RPC). Dose reduction techniques used: Automated exposure control, adjustment of the mAs and/or kVp according to patient size, standardized low-dose protocol, and/or iterative reconstruction technique. COMPARISON: CT thoracolumbar spine 10/04/2017. Report of CT of the abdomen/pelvis performed 07/02/2009. Images are not available. ABDOMEN FINDINGS: Lung Bases: Small posterior layering effusion in the right posterior costophrenic angle. There are scattered nodules in the lung bases. For example a nodule in the posterior basal segment of the right lower lobe measures 7 mm. The heart is normal in size. Liver: Numerous solid hypoattenuating masses throughout the parenchyma. One mass in the left lobe measures approximately 4.0 x 5.6 cm. Mild lobulation of the hepatic capsule suggestive of cirrhosis. Gallbladder: Not visualized and may be absent or contracted. No ductal dilatation. Pancreas: There is fullness of the pancreas body. The tail is atrophic. Pancreas ductal dilatation is suspected in the visualized portion of the tail. Spleen: Normal in size. No mass. Adrenal Glands: No evidence for mass. Kidneys: Right Kidney: Partially duplicated collecting system. No calculus or hydronephrosis. No cortical mass. Left Kidney: Partially duplicated collecting system. No calculus. No cortical mass or hydronephrosis. Lymph Nodes: No defined abdominal or retroperitoneal lymph nodes. Aorta: Diffusely calcified but normal in diameter PELVIS FINDINGS: Bowel: Stomach: A laparoscopically placed gastric band is in appropriate orientation. The stomach is not dilated. Small Bowel: Enteric contrast present throughout. No mural thickening or dilatation. Large Bowel: No enteric contrast. No dilatation. No focal mural thickening. Appendix: Not visualized. Bladder: Normal. Uterus: Absent. No adnexal mass. Lymph Nodes: No enlarged mesenteric, pelvic, or inguinal lymph nodes. Peritoneum/retroperitoneum: Small amount of perihepatic ascites and fluid along the paracolic ureters. Small amount of pelvic ascites. No free air. Bones: The bones are diffusely demineralized. Pedicle screws and vertical stabilizing bars in L3 and L4 from laminectomy and fusion are redemonstrated. The hardware appears intact. Grade 1 anterolisthesis of L1 on L2 is stable. Mild superior endplate compression deformity of L4 is stable. No destructive lesions. Soft tissues: Small umbilical hernia containing fat and a small amount of fluid. IMPRESSION: 1. Multiple intrahepatic masses suggestive of metastases. There is suggestion of cirrhosis. 2. Diminutive pancreas with suggestion of a mass in the pancreas body resulting in upstream ductal dilatation. 3. Gastric band in appropriate orientation. No evidence for bowel obstruction or inflammation. 4. Multiple pulmonary nodules are concerning for metastases. 5. Small right pleural effusion and abdominopelvic ascites. Signed by: Dr. Adele Strange MD on 08/07/2019 11:23 PM
--- OUTSIDE RECORDS SUMMARY | 2019-08-08 01:09 | XMS REPORT | Continuity of Care Document ---
Author Author [facility], ARNALDO Khan [employer] Information [employer] Address Unknown Phone Unavailable Care Team Providers Care Car Installations Supervisor Name Role Phone [employer] Information Exchange Unavailable Un available Problems Problem [...] 100 MG Orally Twice a d ay [facility] [place] 05/03/2018 Breanne Najam Chlorzoxazone 1 tab(s) as [...] Breanne Najam Ergocalciferol 1 capsule Orally Active 37521 UNIT Orally once weekly Najam 05/13/2017 Breanne Najam Enbrel SureClick 1 ml Subcutaneous Active 50 MG/ML Subcutaneous Once a week Najam 05/13/2017 Breanne Najam Humira Pen 0.8 ml Subcutaneous Active 40 MG/0.8ML Subcutaneou s every 2 weeks Najam Breanne Najam Ergocalciferol 1 capsule Orally Active 71819 UNIT Orally once weekly Najam Breanne Najam [...]
--- OUTSIDE RECORDS SUMMARY | 2019-08-08 01:09 | XMS REPORT | Clinical Summary ---
Author Author [facility] Address Unknown Phone Unavailable Care Team Providers Care Sludge Control Attendant Name Role Phone Wilman Bullard MD PCP [...] VACCINE 10/07/2019 12/06/2016 Results Not on fileafter 08/07/2018 Insurance Type Payer Benefit Subscriber ID Effective Phone Address Plan / Dates Group HMO [employer] xxxxxxxxx 2017- [place] Present Advance Directives For more information, please contact: [phone] Patient Complex Care Nurse Explanation Type Date Recorded Advance Directives, Living Will and Medical Power of Olericulturist
--- OUTSIDE RECORDS SUMMARY | 2019-08-08 01:10 | XMS REPORT | Continuity of Care Document ---
Author Author [facility] t Organization [facility] Address [address] [place] [address] Phone Unavailable Care Team Providers Care Sap Administrator Name Role Phone Lucille HOUGH MD PCP BILL WYNN Attphys Unavailable Michelle VÁSQUEZ Attphys Unavailable Payers Payer Name Policy Type Policy Number Effective Date Expiration Date Lucille Mcnamara [id number] 2017 00:00:00 [facility] Problems Condition Name Condition Details Condition Category [...] Najam Diagnosis Active 2019-06-05 02:45:41 Breanne Najam Left lateral knee pain Left lateral knee [...] Active Info Not Available 2019-05-30 00:00 :00 [facility] amoxicillin DA Active SV 2018-11-29 00:00:00 [facility] Codeine Codeine Active Info Not Available 2017-11-02 00:00:00 [facility] Amoxicillin Propensity to adverse reactions to drug Active Itching 2017-10-04 00:00:00 Angel Carteris t Codeine Propensity to adverse reactions to drug Active Other (See Comments) 2017-10-04 00:00:00 Angel Clark odist Amoxicillin Allergy to Substance Active 2016-04-30 00:00:00 [facility] Codeine Allergy to Substance Active Mild HICCUPS 2009-05-29 00:00:00 [facility] codeine DA Active [place] 2008-09-04 00:00:00 [facility] CODEINE DA Active U 2008-09-04 00:00:00 [facility] No Known Contrast Allergies DA Active U 2008-09-04 00:00: 00 [facility] No Known Food Allergies DA Active U 2008-09-04 00:00:00 [facility] No Known Other Allergies DA Active U 2008-09-04 00:00:00 [facility] Family History Family Member Diagnosis Comments Start Date Stop Date Source Natural brother Asthma Ortiz M ethodist Natural father Diabetes [place] [facility] Natural father Heart disease Ortiz Bahai Natural father Hyperlipidemia [place] Natural father Kidney disease [place] Natural father Stroke [place] [facility] Natural mother Cancer [place] [facility] Natural mother Heart disease Angel Bahai Natural mother Hypertension Angel Bright Social History Social Habit Start Date Stop Date Quantity Comments Source Sex Assigned At Vik Bright Alcohol intake 2017-10-04 00:00:00 2017-10-04 00:00:00 [...] by mouth 2 (two) times a day. Renita Bright losartan-hydrochlorothiazide (HYZAAR) 100-25 mg per tablet 2017-10-08 19:32:46 Yes 1{tbl} QD Take 1 tablet by mouth daily. Angel Bright atorvastatin (LIPITOR) 20 MG tablet 2017-10-08 19:32:46 Yes 20mg QD Take 20 mg by mouth daily. Default OP ins Vik ston Bahai oxyCODone-acetaminophen (PERCOCET) 10-325 mg per tablet 2017-10-08 [...] 00:00:00 Yes Breanne Najam 1 tablet Breanne Naaldom Ergocalciferol 2017-05-13 00:00:00 Yes Breanne Najam 1 capsule Breanne Naaldom Enbrel SureClick 2017-05-13 00:00:00 Yes Breanne Najam 1 ml Breanne Najam Acetaminophen 325 Mg Tablet Acetaminophen 325 Mg Tablet Yes 650 Every 4 Hours as needed for Pain [facility] Atorvastatin Calcium 20 Mg Tablet Atorvastatin Calcium 20 Mg Tablet Yes 20 Bedtime [facility] Baclofen 10 Mg Tablet Baclofen 10 Mg Tablet Yes 10 Three Times A Day [facility] Calcium Carb/Vit D3/Minerals (Caltrate Plus Tablet) 1 Each Tablet Calcium Carb/Vit D3/Minerals (Caltrate Plus Tablet) 1 Each Tablet Yes 1 Daily [facility] Celecoxib (Celebrex*) 100 Mg Capsule Celecoxib (Celebrex*) 100 Mg C apsule Yes [facility] Folic Acid 1 Mg Tablet Folic Acid 1 Mg Tablet Yes 1 Daily [facility] Lactobac Cmb #3/Fos/Pantethine (Probiotic & Acidophilu s Cap) 1 Each Capsule Lactobac Cmb #3/Fos/Pantethine (Probiotic & Acidophilus Cap) 1 Each Capsule Yes 1 Daily [facility] Levothyroxine Sodium 112 Mcg Tablet Levothyroxine Sodium 112 Mcg Tabl et Yes 112 Daily [facility] Losartan Hctz Losartan Hctz Yes 100 Daily [facility] Methotrexate Sodium (Methotrexate) 2.5 Mg Tablet Metho trexate Sodium (Methotrexate) 2.5 Mg Tablet Yes 5 Use As Di rected [facility] Oxycodone Hcl/Acetaminophen (Oxycodone-Acetaminophen 5 -325) 1 Each Tablet Oxycodone Hcl/Acetaminophen (Oxycodone-Acetaminophen 5-325) 1 Each Tablet Yes 10 Every 6 Hours for Pain C [facility] Sulfamethoxazole/Trimethoprim (Sulfamethoxazole-Tmp Ds Tablet) 1 Each Tablet Sulfamethoxazole/Trimethoprim (Sulfamethoxazole-Tmp Ds Tablet) 1 Each Tablet Yes [facility] Vital Signs Vital Name Observation Time Observation Value Comments Source Height 2018-09-19 16:15:00 Breanne N ajam Diastolic (mm Hg) 2018-09-19 16:15:00 Sab een Najam Systolic (mm Hg) 2018-09-19 16:15:00 Sabe en Bee Weight 2018-09-19 16:15:00 Breanne N ajam Height [...] Systolic (mm Hg) 2017-11-02 15:30:00 Sabe en Bee Weight 2017-11-02 15:30:00 Breanne N ajam Height 2017-07-27 15:00:00 Breanne N ajam Diastolic (mm Hg) 2017-07-27 15:00:00 Sab een Najam Systolic (mm Hg) 2017-07-27 15:00:00 Sabe en Bee Weight 2017-07-27 15:00:00 Breanne N ajam Height 2017-05-13 15:15:00 Breanne N ajam Diastolic (mm Hg) 2017-05-13 15:15:00 Sab een Najam Systolic (mm Hg) 2017-05-13 15:15:00 Sabe en Naaldom Weight 2017-05-13 15:15:00 Breanne N ajam Height 2017-04-29 15:00:00 Breanne N ajam Diastolic (mm Hg) 2017-04-29 15:00:00 Sab een Najam Systolic (mm Hg) 2017-04-29 15:00:00 Sabe asia [place] Weight 2017-04-29 15:00:00 Breanne N ajam Procedures Procedure Date / Time Performed Performing Clinician [facility] e Computed tomography of brain without radiopaque contrast 201 10-12-29 00:00:00 FAHAD, [facility] Computed tomography of thoracic spine without contrast 10-04 00:00:00 FAHAD, [facility] Computed tomography of lumbar spine without contrast 2017-09 00:00:00 FAHAD [facility] Plan of Care Planned Activity Planned Date Details Comments Source Future Scheduled Test 2019-10-07 00:00:00 INFLUENZA VACCINE [code = INFLUENZA VACCINE] [facility] Future Scheduled Test 2009 00:00:00 65+ PNEUMOCOCCAL V ACCINE (2 of 2 - PPSV23) [code = 65+ PNEUMOCOCCAL VACCINE (2 of 2 - PPSV23)] [facility] Future Scheduled Test 1994 00:00:00 BREAST CANCER SCRE ENING [code = BREAST CANCER SCREENING] [facility] Future Scheduled Test 1994 00:00:00 COLONOSCOPY SCREEN ING [code = COLONOSCOPY SCREENING] [facility] Future Scheduled Test 1994 00:00:00 SHINGLES VACCINES (#1) [code = SHINGLES VACCINES (#1)] [facility] Future Scheduled Test 1954 00:00:00 DIABETIC FOOT EXAM [code = DIABETIC FOOT EXAM] [facility] Future Scheduled Test 1944 00:00:00 DIABETIC RETINAL E YE EXAM [code = DIABETIC RETINAL EYE EXAM] [facility] Encounters Start Date/Time End Date/Time Encounter Type Admission Type [facility] Care Department Encounter ID Source 2019-08-08 01:09:39 Outpatient MHIEALT MHIEALT [id number] [facility] 2019-05-30 10:45:00 2019-05-30 10:45:00 Outpatient [facility] [id number] [facility] 2018-09-19 11:15:00 2018-09-19 11:15:00 Outpatient [facility] [id number] [facility] 2018-05-13 09:38:00 2018-05-13 09:38:00 Outpatient [facility] [id number] [facility] 2018-05-03 11:15:00 2018-05-03 11:15:00 Outpatient [facility] [id number] [facility] 2018-02-07 11:54:00 2018-02-07 11:54:00 Outpatient [facility] [id number] [facility] 2018-02-01 11:15:00 2018-02-01 11:15:00 Outpatient [facility] [id number] [facility] 2017-12-27 11:21:00 2017-12-27 11:21:00 Outpatient [facility] [id number] [facility] 2017-11-02 10:30:00 2017-11-02 10:30:00 Outpatient [facility] [id number] [facility] 2017-10-21 16:37:00 2017-10-21 16:37:00 Outpatient [facility] [id number] [facility] 2017-10-13 11:37:00 2017-10-13 11:37:00 Outpatient [facility] [id number] [facility] 2017-10-04 11:34:00 2017-10-04 20:18:00 Departed Emergency Room 1 JESSICA VÁSQUEZ [facility] [id number] [facility] 2017-07-27 12:34:00 2017-07-27 12:34:00 Outpatient [place] [facility] [id number] [facility] 2017-07-27 10:00:00 2017-07-27 10:00:00 Outpatient [facility] [id number] [facility] 2017-05-13 12:43:00 2017-05-13 12:43:00 Outpatient [facility] [id number] [facility] 2017-05-13 09:15:00 2017-05-13 09:15:00 Outpatient [facility] [id number] [facility] 2017-04-29 09:00:00 2017-04-29 09:00:00 Outpatient [facility] [id number] [facility] Results Test Description Test Time Test Comments Results Result Comments Source CT ABDOMEN/PELVIS WO 2019-08-07 23:10:00 [place] [address] Patient Name: ARNALDO LAMB MR #: [id number] : 1945 Age/Sex: 74/F Req #: [id number] Adm Physician: Ordered by: BILL WYNN DO Report #: [id number] Location: ER Room/Bed: Procedure: [id number] CT/CT ABDOMEN/PELVIS WO Exam Date: Exam Time: REPORT STATUS: Signed CT Abdomen And Pelvis Without IV Contrast INDICATION: Abdominal pain, nausea and vomiting TECHNIQUE: 5 mm collimation axial images obtained from the diaphragm to the level of the pubic symphysis without nonionic intravenous contrast. Oral contrast was administered. RADIATION DOSE: Total DLP: 379.5 mGy*cm Estimated effective dose: (DLP x 0.015 x size factor) mSv CTDIvol has been reviewed. It is below the limits set by the Radiation Protocol Committee (RPC). Dose reduction techniques used: Automated exposure control, adjustment of the mAs and/or kVp according to patient size, standardized low-dose protocol, and/or iterative r econstruction technique. COMPARISON: CT thoracolumbar spine 10/04/2017. Report of CT of the abdomen/pelvis performed 07/02/2009. Images are not available. ABDOMEN FINDINGS: Lung Bases: Small posterior layering effusion in the right posterior costophrenic angle. There are scattered nodules in the lung bases. For example a nodule in the posterior basal segment of the right lower lobe measures 7 mm. The heart is normal in size. Liver: Numerous solid hypoattenuating masses throughout the parenchyma. One mass in the left lobe measures approximately 4.0 x 5.6 cm. Mild lobulation of the hepatic capsule suggestive of cirrhosis. Gallbladder: Not visualized and may be absent or contracted. No ductal dilatation. Pancreas: There is fullness of the pancreas body. The tail is atrophic. Pancreas ductal dilatation is suspected in the visualized portion of the tail. Spleen: Normal in size. No mass. Adrenal Glands: No evidence for mass. Kidneys: Right Kidney: Partially duplicated collecting system. No calculus or hydronephrosis. No cortical mass. Left Kidney: Partially duplicated collecting system. No calculus. No cortical mass or hydronephrosis. Lymph Nodes: No defined abdominal or retroperitoneal lymph nodes. Aorta: Diffusely calcified but normal in diameter PELVIS FINDINGS: Bowel: Stomach: A laparoscopically placed gastric band is in appropriate orientation. The stomach is not dilated. Small Bowel: Enteric contrast present throughout. No mural thickening or dilatation. Large Bowel: No enteric contrast. No dilatation. No focal mural thickening. Appendix: Not visualized. Bladder: Normal. Uterus: Absent. No adnexal mass. Lymph Nodes: No enlarged mesenteric, pelvic, or inguinal lymph nodes. Peritoneum/retroperitoneum: Small amount of perihepatic ascites and fluid along the paracolic ureters. Small amount of pelvic ascites. No free air. Bones: The bones are diffusely demineralized. Pedicle screws and vertical stabilizing bars in L3 and L4 from laminectomy and fusion are redemonstrated. The hardware appears intact. Grade 1 anterolisthesis of L1 on L2 is stable. Mild superior endplate compression deformity of L4 is stable. No destructive lesions. Soft tissues: Small umbilical hernia containing fat and a small amount of fluid. IMPRESSION: 1. Multiple intrahepatic masses suggestive of metastases. There is suggestion of cirrhosis. 2. Diminutive pancreas with suggestion of a mass in the pancreas body resulting in upstream ductal dilatation. 3. Gastric band in appropriate orientation. No evidence for bowel obstruction or inflammation. 4. Multiple pulmonary nodules are concerning for metastases. 5. Small right pleural effusion and abdominopelvic ascites. Signed by: Dr. Keyur Vilchis MD on 08/07/2019 11:23 PM Dictated By: KEYUR VILCHIS MD 22 Transcribed By: AURA on 08/07/192322 COPY TO: BILL WYNN DO URINALYSIS COMPLETE 2019-01-11 20:24:00 Test Item UA [...] Urine Source? Clean Catch- CT MAXIFAC W/O [id number] 20:14:00 Name: ARNALDO LAMB [facility] : 1945 Age/S: 73 / F [address] Unit #: [id number] Loc: [place] [address] Phys: Bess MD Acct: [id number] Di s Date: Status: REG ER PHONE #: Exam Date: 01/11/20191948 FAX #: Reason: Pain s/p fall EXAMS: CPT CODE: [id number] CT MAXIFAC [place] 37650 REASON FOR EXAM: Pain s/p fall EXAM ORDER DATE: 01/11/2019 7:13 PM Ordering: Chiquita Toledo MD Attending:Campos Toledo MD Location: PROCEDURE: - CT MAXIFAC W/O CNT FINDINGS: CT images of the f toyb were obtained without IV contrast at 2.5 [...] 01/11/2019 (2017) PAGE 1 Signed Report URINALYSIS [id number] 20:11:00* Test Item Value Reference Range Interpretation [...] Urine Source? Clean Catch- CT C-SPINE W/O [id number] 20:07:00 Name: ARNALDO LAMB [facility] : 1945 Age/S: 73 / F [address] Unit #: [id number] Loc: [place] [address] Phys: Bess MD Acct: [id number] Di s Date: Status: REG ER PHONE #: Exam Date: 01/11/20191947 FAX #: Reason: Pain s/p Fall EXAMS: CPT CODE: [id number] CT C-SPINE W/O CONTRAST 68793 REASON FOR EXAM: Pain s/p Fall EXAM [...] 1 Signed Report - CT HEAD/BRAIN W/O [id number] 20:06:00 Name: ARNALDO LAMB [facility] : 1945 Age/S: 73 / F [address] Unit #: [id number] Loc: [place] [address] Phys: Bess MD Acct: [id number] Di s Date: Status: REG ER PHONE #: Exam Date: 01/11/20191947 FAX #: [phone] Reason: Pain s/p Fall EXAMS: CPT CODE: [id number] CT HEAD/BRAIN W/O CONT 20781 REASON FOR EXAM: Pain s/p Fall EXAM [...] frontal scalp. No acute intracranial findings at 2006 Reported and signed by: Angelo Fontana M.D. CC: Campos Toledo MD; Wilman Hough Technologist:ORLY SONI RT(R),RDMS,CT CTDI: DLP: Trnscb Date/Time: 01/11/2019 (2005) t.[email or web address].VTL Orig Print D/T: S: 01/11/2019 (2008) PAGE 1 Signed Report - XR KNEE 3 V [id number] 20:05:00 Name: ARNALDO LAMB [facility] : 1945 Age/S:73 /F [address] Unit#:[id number] Loc: [place] [address] Phys: Campos Toledo MD Dis Date: PHONE #: [phone] Status: REG ER FAX #: [phone] Exam Date: 01/11/2019 Reason: Pain s/p Fall EXAMS: CPT CODE: [id number] XR KNEE 3 V LT 43592 REASON FOR EXAM: Pain s/p Fall EXAM [...] ORLY SONI RT(R),RDMS,CT Trnscrpt Data: 01/11/2019 (2004) Angelica.VTL Orig Print D/T: S: 01/11/2019 (2008) PAGE 1 Signed Report BASIC METABOLIC [id number] 19:36:00* Test Item Value Reference Range Interpretation [...] code = CK) 124 U/L 26-192 N [id number] 19:36:00* Test Item Value Reference Range Interpretation Comments MAGNESIUM (test code = MAG) 2.2 mg/dL 1.6-2.3 N BASIC METABOLIC [id number] 19:32:00* Test Item Value Reference Range Interpretation [...] (CK) (test code = CK) IUnit/L 26-208 [id number] 19:32:00* Test Item Value Reference Range Interpretation Comments MAGNESIUM (test code = MAG) mg/dL 1.8-2.4 CBC W/AUTO [id number] 19:25:00* Test Item Value Reference Range Interpretation [...] = MDIFF) NO - XR FLUOROSCOPY 0-60 [id number] 10:10:00 FAX: Wilman Tamez MD [phone] [place]: St: [facility] FAX: Kevin Cash MD [phone] Name: ARNALDO LAMB [facility] : 1945 Age/S: 73/F [address] [place] [address] Unit #: [id number] Loc: [place] [address] Phys: Kevin Greenwood MD Acct: [id number] Dis Date: Status: REG [facility] PHONE #: [phone] Exam Date: 12/01/2018 0757 FAX #: [phone] Reason: CHRONIC PAIN SYNDROME ,POST LAMINECTOMY SYNDROME EXAMS: CPT CODE: [id number] XR FLUOROSCOPY 0-60 MIN 33539 Study: - XR FLUOROSCOPY 0-60 MIN 12/01/2018 7:43 AM Patient Name: ARNALDO LAMB MR: [id number] DATE: 019 7:43 AM : 1945; Age: 73 years y/o Female Ordering Phy sician: Kevin Greenwood MD Clinical Indication: CHRONIC PAIN SYND VADIM,POST LAMINECTOMY SYNDROME (LUMBAR) Intraprocedural fluo roscopy was provided by the Department of Radiology. Any images obtained w ere interpreted by the surgeon intraoperatively. Fluoroscopy time: 11 seconds Reference Air Kerma: 1.8 mGy SL: [id number] at 1010 R eported and signed by: Daylin Foreman D.O. CC: Wilman Hough MD; Kevin Greenwood MD Technologist: RT Moncho(R) Trnscrd Date/Time/By: 12/01/2018 (1010) : By: Pasquale [id number] Orig Print D/T: S: 12/01/2018 (1013) JOSÉ MIGUEL JARVIS 1 Signed Report GLUBED 2018-12-01 09:03:00* Test Item Value Reference Range Interpretation Comments GLUBED (test code = GLUBED) 232 MG/DL 70-110 H Performed by certified petroleum terminal plant operator at [facility] [id number] 08:28:00* Test Item Value Reference Range Interpretation Comments GLUBED (test code = GLUBED) 164 MG/DL 70-110 H Performed by certified petroleum terminal plant operator at [facility] [id number] 07:56:00* Test Item Value Reference Range Interpretation Comments GLUBED (test code = GLUBED) 173 MG/DL 70-110 H Performed by certified petroleum terminal plant operator at [facility] - XR CHEST 2 [id number] 12:29:00 FAX: Wilman Tamez MD [phone] [place]: St: PRE FAX: Kevin Cash MD [phone] Name: ARNALDO LAMB [facility] : 1945 Age/S: 73/F [address] [place] [address] Blvd Unit #: [id number] Loc: [place] [address] Phys: Kevin Greenwood MD Acct: [id number] Dis Date: Status: PRE SDC PHONE #: [phone] Exam Date: 11/29/2018 1224 FAX #: [phone] Reason: IT PUMP TRIAL FOR CHRONIC PAIN SYNDROME EXAMS: CPT CODE: [id number] XR CHEST 2 V 25467 EXAM: PA and lateral chest. EXAM DATE: [...] No evidence of acute cardiopulmonary disease. at 1229 Reported and signed by: Adrianna Chow M.D. CC: Wilman Hough MD; Kevin Greenwood MD Technologist: David Muller RT(R) Trnscrd Date/Time/By: 11/29/2018 (5620) : By: Charito Orig Print D/T: S: 11/29/2018 (0835) PAGE 1 Signed Report CBC W/AUTO DIFF [...] (test code = MDIFF) NO BASIC METABOLIC [id number] 11:34:00* Test Item Value Reference Range Interpretation [...] 9.2 mg/dL 8.0-10.[address] LUMBAR SPINE [id number] 14:31:00 [place] [address] Patient Name: ARNALDO LAMB MR #: [id number] : 1945 Age/Sex: 72/F Req #: [id number] Adm Physician: Ordered by: JESSICA VÁSQUEZ MD Report #: [id number] Location: ER Room/Bed: Procedure: [id number] CT/CT LUMBAR SPINE WO Exam Date: 10/04/17 [...] performe d on 05/25/2009. Signed by: Dr. Lupe Joseph M.D. on 10/04/2017 3:07 PM Dictated By: LUPE JOSEPH MD 150 COPY TO: IFRAH VÁSQUEZ MD CT THORACIC SPINE [id number] 14:19:00 [place] [address] Patient Name: ARNALDO LAMB MR #: [id number] : 1945 Age/Sex: 72/F Req #: [id number] [facility] Physician: Ordered by: JESSICA VÁSQUEZ MD Report #: [id number] Location: ER Room/Bed: Procedure: [id number] CT/CT THORACIC SPINE WO Exa m Date: [...] be assessed with CT. Signed by: Dr. Lupe Joseph M.D. on 10/04/2017 2:27 PM Dictated By: LUPE JOSEPH MD 1148 Transcribed By: AURA on 10/04/17 1427 COPY TO: PAULA VÁSQUEZ MD CT BRAIN [id number] 13:34:00 [place] [address] Patient Name: ARNALDO LAMB MR #: [id number] : 1945 Age/Sex: 72/F Req #: [id number] Adm Physician: Ordered by: JESSICA VÁSQUEZ MD Report #: [id number] Location: Room/Bed: Procedure: [id number] CT/CT BRAIN WO Exam Date: 10/04/17 Exam Time: 1240 REPORT STATUS: Signed ADDENDUM #1 Dose modulation, iterative reconstructio n, and/or weight based adjustment of the mA/kV was utilized to reduce the radi ation dose to as low as reasonably achievable. Signed by: Dr. Lupe Joseph M.D. 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 Signed by: Dr. Lupe Joseph M.D. on 10/04/2017 1:43 PM Dicta isela By: LUPE JOSEPH MD 100 5 Transcribed By: AURA on 10/04/17 1343 COPY TO: JESSICA VÁSQUEZ MD Urine [id number] 13:19:00* Test Item Value Reference Range Interpretation Comments Urine WBC (test code = 5821-4) 50- 0-5 [facility] [id number] 13:19:00* Test Item Value Reference Range Interpretation Comments Urine RBC (test code = 50422-3) 11-20 0-5 [facility] [id number] 13:19:00* Test Item Value Reference Range Interpretation Comments Urine Bacteria (test code = 46618-2) MODERATE NONE [facility] Epithelial [id number] 13:19:00 * Test Item Value Reference Range Interpretation Comments Urine Epithelial Cells (test code = 77368-1) FEW NONE [facility] [id number] 13:03:00* Test Item Value Reference Range Interpretation Comments Urine Color (test code = 5778-6) YELLOW YELLOW [facility] [id number] 13:03:00* Test Item Value Reference Range Interpretation Comments Urine Clarity (test code = 07961-1) CLOUDY CLEAR H [facility] Specific [id number] 13:03:00 * Test Item Value Reference Range Interpretation Comments Urine Specific [place] (test code = 5811-5) 1.025 1.010-1.02 5 [facility] [id number] 13:03:00* Test Item Value Reference Range Interpretation Comments Urine pH (test code = 68774-6) 5 5-7 [facility] Leukocyte [id number] 13:03:00* Test Item Value Reference Range Interpretation Comments Urine Leukocyte Esterase (test code = 5799-2) 2+ NEGATIVE [facility] [id number] 13:03:00* Test Item Value Reference Range Interpretation Comments Urine Nitrite (test code = 13956-1) NEGATIVE NEGATIVE [facility] [id number] 13:03:00* Test Item Value Reference Range Interpretation Comments Urine Protein (test code = 5804-0) 2+ NEGATIVE H [facility] Glucose (UA)2017-10-04 13:03:00* Test Item Value Reference Range Interpretation Comments Urine Glucose (UA) (test code = 2349-9) 2+ NEGATIVE H [facility] [id number] 13:03:00* Test Item Value Reference Range Interpretation Comments Urine Ketones (test code = 66880-1) NEGATIVE NEGATIVE [facility] [id number] 13:03:00* Test Item Value Reference Range Interpretation Comments Urine Urobilinogen (test code = 15393-8) 0.2 0.2-1 [facility] [id number] 13:03:00* Test Item Value Reference Range Interpretation Comments Urine Bilirubin (test code = 1978-6) NEGATIVE NEGATIVE [facility] [id number] 13:03:00* Test Item Value Reference Range Interpretation Comments Urine Blood (test code = 01522-8) 2+ NEGATIVE H [facility] Kinase [id number] 12:51:00* Test Item Value Reference Range Interpretation Comments Creatine Kinase MB (test code = 55330-7) 2.60 0-5.0 [facility] [id number] 12:51:00* Test Item Value Reference Range Interpretation Comments Troponin I (test code = COS1850) 0.012 0-0.300 [facility] [id number] 12:48:00* Test Item Value Reference Range Interpretation Comments Sodium Level (test code = 2951-2) 129 136-145 L [facility] [id number] 12:48:00* Test Item Value Reference Range Interpretation Comments Potassium Level (test code = 2823-3) 4.3 3.5-5.1 [facility] HospitalChloride [id number] 12:48:00* Test Item Value Reference Range Interpretation Comments Chloride Level (test code = 2075-0) 95 98-107 L [facility] HospitalCarbon Dioxide Ckepg2660-35-28 12:48:00* Test Item Value Reference Range Interpretation Comments Carbon Dioxide Level (test code = 2028-9) 21 22-29 L [facility] HospitalAnion [id number] 12:48:00* Test Item Value Reference Range Interpretation Comments Anion Gap (test code = 18597-1) 17.3 8-16 H [facility] HospitalBlood Urea Agfzxjyl4286-60-70 12:48:00* Test Item Value Reference Range Interpretation Comments Blood Urea Nitrogen (test code = 3094-0) 79 7-26 H [facility] HospitalCreatinine2018-07-30 12:48:00* Test Item Value Reference Range Interpretation Comments Creatinine (test code = 2160-0) 3.35 0.57-1.11 H [facility] HospitalBUN/Creatinine Oivqk2300-51-52 12:48:00* Test Item Value Reference Range Interpretation Comments BUN/Creatinine Ratio (test code = 3097-3) 24 6-25 [facility] HospitalEstimat Glomerular Filtration Rate 2017-10-04 12:48:00* Test Item Value Reference Range Interpretation Comments Estimat Glomerular Filtration Rate (test code = 81021-6) 13 >60 L Ranges were taken from the National Kidney Disease Education Program and the [facility] [employer] literature.Reference ranges:60 or greater: Nhlrnd48-83 ( for 3 consecutive months): Chronic kidney disease 15 or less: Kidney failureMethodist [facility] HospitalGlucose Blmox4030-70-19 12:48:00* Test Item Value Reference Range Interpretation Comments Glucose Level (test code = FMW2504) 441 74-118 HH Results called to ISHA FUNEZ RN at 1247 on 10/04/17 by Rusty Massey. RB OK.This test has been rerun and double checked for accuracy.[facility] HospitalCalcium Upwfe6893-70-37 12:48:00* Test Item Value Reference Range Interpretation Comments Calcium Level (test code = 45484-4) 8.2 8.4-10.2 L [facility] HospitalTotal Ghtsxpahp6129-84-88 12:48:00* Test Item Value Reference Range Interpretation Comments Total Bilirubin (test code = 1975-2) 0.6 0.2-1.2 [facility] HospitalAspartate Amino Transf (AST/SGOT) 2017-10-04 12:48:00* Test Item Value Reference Range Interpretation Comments Aspartate Amino Transf (AST/SGOT) (test code = Aspartate Amino Transf (AST/SGOT)) 26 5-34 [facility] HospitalAlanine Aminotransferase (ALT/SGPT) 2017-10-04 12:48:00* Test Item Value Reference Range Interpretation Comments Alanine Aminotransferase (ALT/SGPT) (test code = 1742-6) 23 0-55 [facility] HospitalTotal Eghlgsc1654-27-55 12:48:00* Test Item Value Reference Range Interpretation Comments Total Protein (test code = 2885-2) 6.2 6.5-8.1 L [facility] HospitalAlbumin2018-07-30 12:48:00* Test Item Value Reference Range Interpretation Comments Albumin (test code = 1751-7) 2.3 3.5-5.0 L [facility] HospitalGlobulin2018-07-30 12:48:00* Test Item Value Reference Range Interpretation Comments Globulin (test code = 84774-2) 3.9 2.3-3.5 H [facility] HospitalAlbumin/Globulin Kggrd3926-86-46 12:48:00 * Test Item Value Reference Range Interpretation Comments Albumin/Globulin Ratio (test code = 1759-0) 0.6 0.8-2.0 L [facility] HospitalAlkaline Iejqppkhmie1537-12-43 12:48:00* Test Item Value Reference Range Interpretation Comments Alkaline Phosphatase (test code = 6768-6) 90 40-150 [facility] HospitalCreatine Kygbsn9653-00-73 12:48:00* Test Item Value Reference Range Interpretation Comments Creatine Kinase (test code = 2157-6) 123 29-168 [facility] HospitalWhite Blood Rolga3188-11-29 12:32:00* Test Item Value Reference Range Interpretation Comments White Blood Count (test code = 6690-2) 11.51 4.8-10.8 H [facility] HospitalRed Blood Gkbee6983-72-01 12:32:00* Test Item Value Reference Range Interpretation Comments Red Blood Count (test code = 789-8) 2.44 3.6-5.1 L [facility] HospitalHemoglobin2018-07-30 12:32:00* Test Item Value Reference Range Interpretation Comments Hemoglobin (test code = 01779-7) 8.3 12.0-16.0 L [facility] HospitalHematocrit2018-07-30 12:32:00* Test Item Value Reference Range Interpretation Comments Hematocrit (test code = 4544-3) 24.8 34.2-44.1 L [facility] HospitalMean Corpuscular Zvitkk6914-78-32 12:32:00* Test Item Value Reference Range Interpretation Comments Mean Corpuscular Volume (test code = 787-2) 101.6 81-99 H [facility] HospitalMean Corpuscular Rbnqzqgjcv7115-77-78 12:32:00* Test Item Value Reference Range Interpretation Comments Mean Corpuscular Hemoglobin (test code = 785-6) 34.0 28-32 H [facility] HospitalMean Corpuscular Hemoglobin Concent 2017-10-04 12:32:00* Test Item Value Reference Range Interpretation Comments Mean Corpuscular Hemoglobin Concent (test code = 786-4) 33.5 31-35 [facility] HospitalRed Cell Distribution Davfv1393-18-81 12:32:00* Test Item Value Reference Range Interpretation Comments Red Cell Distribution Width (test code = 58069-7) 16.3 11.7 -14.4 H [facility] HospitalPlatelet Casjk8691-23-99 12:32:00* Test Item Value Reference Range Interpretation Comments Platelet Count (test code = 777-3) 161 140-360 [facility] HospitalNeutrophils (%) (Auto)2017-10-04 12:32:00 * Test Item Value Reference Range Interpretation Comments Neutrophils (%) (Auto) (test code = 19172-3) 83.9 38.7-80.0 H [facility] HospitalLymphocytes (%) (Auto)2017-10-04 12:32:00 * Test Item Value Reference Range Interpretation Comments Lymphocytes (%) (Auto) (test code = 736-9) 6.2 18.0-39.1 L [facility] HospitalMonocytes (%) (Auto)2017-10-04 12:32:00* Test Item Value Reference Range Interpretation Comments Monocytes (%) (Auto) (test code = 5905-5) 6.0 4.4-11.3 [facility] HospitalEosinophils (%) (Auto)2017-10-04 12:32:00 * Test Item Value Reference Range Interpretation Comments Eosinophils (%) (Auto) (test code = 713-8) 0.2 0.0-6.0 [facility] HospitalBasophils (%) (Auto)2017-10-04 12:32:00* Test Item Value Reference Range Interpretation Comments Basophils (%) (Auto) (test code = 706-2) 0.2 0.0-1.0 [facility] HospitalIM GRANULOCYTES %2017-10-04 12:32:00* Test Item Value Reference Range Interpretation Comments IM GRANULOCYTES % (test code = IM GRANULOCYTES %) 3.5 0.0- 1.0 H [facility] HospitalNeutrophils # (Auto)2017-10-04 12:32:00* Test Item Value Reference Range Interpretation Comments Neutrophils # (Auto) (test code = 751-8) 9.7 2.1-6.9 H [facility] HospitalLymphocytes # (Auto)2017-10-04 12:32:00* Test Item Value Reference Range Interpretation Comments Lymphocytes # (Auto) (test code = 77824-7) 0.7 1.0-3.2 L [facility] HospitalMonocytes # (Auto)2017-10-04 12:32:00* Test Item Value Reference Range Interpretation Comments Monocytes # (Auto) (test code = 742-7) 0.7 0.2-0.8 [facility] HospitalEosinophils # (Auto)2017-10-04 12:32:00* Test Item Value Reference Range Interpretation Comments Eosinophils # (Auto) (test code = 711-2) 0.0 0.0-0.4 [facility] HospitalBasophils # (Auto)2017-10-04 12:32:00* Test Item Value Reference Range Interpretation Comments Basophils # (Auto) (test code = 704-7) 0.0 0.0-0.1 [facility] HospitalAbsolute Immature Granulocyte (auto 2017-10-04 12:32:00* Test Item Value Reference Range Interpretation Comments Absolute Immature Granulocyte (auto (madeleine t code = Absolute Immature Granulocyte (auto) 0.40 0-0.1 H [facility]
[2019-08-08] MEDS: SODIUM CHLORIDE 0.9% 1000ML 1,000 ML IV SCH ×2 (01:38→14:15)
[2019-08-08] MEDS ORDERED: SODIUM CHLORIDE 0.9% 1000ML 1,000 ML IV STA (02:58)
[2019-08-08] MEDS: MORPHINE SULFATE INJ 4 MG/ML INJ 1ML IV PRN ×3 (04:52→19:13)
[2019-08-08] MEDS ORDERED: PANTOPRAZOLE 40 MG 10ML VIAL IV STA (08:30)
[2019-08-08] MEDS ORDERED: DEXTROSE 50% SYRINGE 50 ML IV PRN (09:15)
[2019-08-08 09:44] LABS: BASOPHILS # (AUTO) 0.1 (0.0-0.1); BASOPHILS % 0.3 % (0.0-1.0); EOSINOPHILS # (AUTO) 0.1 (0.0-0.4); EOSINOPHILS % 0.3 % (0.0-6.0); HEMATOCRIT 26.6 % (34.2-44.1); HEMOGLOBIN 8.3 g/dL (12.0-16.0); LYMPHOCYTES % 5.7 % (18.0-39.1); MEAN CORPUSCULAR HEMOGLOBIN 34.2 pg (28-32); MEAN CORPUSCULAR HGB CONC 31.2 g/dL (31-35); MEAN CORPUSCULAR VOLUME 109.5 fL (81-99); MONOCYTES # (AUTO) 1.8 (0.2-0.8); MONOCYTES % 5.1 % (4.4-11.3); NEUTROPHILS # (AUTO) 29.7 (2.1-6.9); NEUTROPHILS % 85.3 % (38.7-80.0); PLATELET COUNT 264 x10e3/uL (140-360); RED BLOOD COUNT 2.43 x10e6/uL (3.6-5.1); RED CELL DISTRIBUTION WIDTH 14.8 % (11.7-14.4)
[2019-08-08 10:10] LABS: AMYLASE 12 U/L (25-125); LIPASE 4 U/L (8-78)
--- NOTE | 2019-08-08 10:20 | NUR ---
PER DR WYNN ORDER CASTELLON CATHETER INSERTION AND 1 MG ATIVAN IV ONE TIME ORDERS REPEATED BACK AND CONFIRMED DR WYNN ALSO NOTIFIED OF PT LACTIC 2.2 TOLD TO CONTINUE TO MONITOR
[2019-08-08 10:29] LABS: THYROID STIMULATING HORMONE 0.088 uIU/mL (0.350-4.940)
[2019-08-08 10:31] LABS: ALBUMIN 1.7 g/dL (3.5-5.0); ALBUMIN/GLOBULIN RATIO 0.4 (0.8-2.0); CALCIUM 7.5 mg/dL (8.4-10.2); CREATININE, SERUM 1.38 mg/dL (0.57-1.11)
[2019-08-08 10:37] LABS: CREATINE KINASE MB 1.5 ng/mL (0-5.0)
[2019-08-08] MEDS ORDERED: LORAZEPAM INJ 2 MG/ML VIAL IV SCH (10:45)
--- NOTE | 2019-08-08 10:52 | NUR ---
DR PRADO AT PT BEDSIDE
[2019-08-08 11:10] LABS: BAND NEUTROPHILS % (MANUAL) 1 %; LYMPHOCYTES % (MANUAL) 4 % (19-48); MONOCYTES % (MANUAL) 5 % (3.4-9.0); NEUTROPHILS % (MANUAL) 90 % (40-74)
[2019-08-08 11:12] LABS: OVALOCYTES FEW; PLATELET ESTIMATE ADEQUATE; PLATELET MORPHOLOGY COMMENT NORMAL; RBC MORPHOLOGY COMMENT ABNORMAL; SCHISTOCYTES RARE
--- NOTE | 2019-08-08 11:13 | Diagnostic Imaging Report ---
EXAM: CT Chest WITHOUT intravenous contrast 08/08/2019 9:40 AM INDICATION: Chest pain, metastases COMPARISON: Abdomen and pelvis CT of 08/07/2019 TECHNIQUE: Chest was scanned utilizing a multidetector helical scanner from the lung apex through the level of the adrenal glands without administration of IV contrast. Coronal and sagittal reformations were obtained. Routine protocol was performed. IV CONTRAST: None RADIATION DOSE: Total DLP: 477 mGy*cm. Dose modulation, iterative reconstruction, and/or weight based adjustment of the mA/kV was utilized to reduce the radiation dose to as low as reasonably achievable. COMPLICATIONS: None FINDINGS: LINES/ TUBES: None. LUNGS AND AIRWAYS: The central airways are patent. Innumerable pulmonary nodules throughout all lobes of the lungs measuring up to 8 mm. No focal consolidation. No pulmonary edema. PLEURA: Trace right pleural effusion. HEART AND MEDIASTINUM: The thyroid gland is normal. No supraclavicular, axillary, mediastinal, or hilar lymphadenopathy. The heart is normal in size.. There is no pericardial effusion. Atherosclerotic calcifications involve the aorta, coronary arteries, and proximal great vessels. UPPER ABDOMEN: Please refer to the dedicated abdomen and pelvis CT of 08/07/2019 for discussion of abdominal findings. BONES: No acute osseous injury. No suspicious lytic or blastic lesions. Degenerative changes of the visualized spine. SOFT TISSUES: Unremarkable. IMPRESSION: Innumerable pulmonary nodules measure up to 8 mm throughout both lungs, concerning for metastatic disease. No focal pneumonia or pulmonary edema. Signed by: Juan Carlos Sarkar MD on 08/08/2019 11:10 AM
[2019-08-08] MEDS: METRONIDAZOLE 500MG/NS 100ML 100 ML IV SCH ×3 (11:27→21:49)
--- NOTE | 2019-08-08 11:35 | Diagnostic Imaging Report ---
TECHNIQUE: MRI of the abdomen WITHOUT intravenous contrast. INDICATION: 74-year-old man with abdominal pain and metastasis. COMPARISON: Abdomen and pelvis CT 08/07/2019. FINDINGS: LOWER THORAX: Trace bilateral pleural effusions, right greater than left. LIVER: Apparent nodular contour of the liver, suggestive of cirrhosis. Multiple T2 intermediate signal masses throughout both lobes of the liver. The largest confluent mass in the left lobe involves almost the entire lateral segment and measures 5 x 9.2 cm in greatest axial dimensions. The largest mass in the right hepatic lobe measures 3 x 2.7 cm in segment 7. BILIARY: Gallbladder is unremarkable. No biliary ductal dilatation or filling defect. SPLEEN: No splenomegaly. PANCREAS: Apparent 2 x 1.7 cm T2 intermediate signal mass in the the region of the proximal pancreatic body with prominence of the upstream pancreatic duct up to 0.9 cm. ADRENALS: No adrenal nodules. KIDNEYS/URETERS: No hydronephrosis or solid mass lesions. Subcentimeter T1/T2 hyperintense structure in the left upper pole. PERITONEUM/RETROPERITONEUM: Small volume ascites. LYMPH NODES: No lymphadenopathy. VESSELS: Unremarkable. GI TRACT: Unchanged laparoscopic gastric band. No distention or wall thickening. BONES AND SOFT TISSUES: Degenerative changes of the visualized spine. Susceptibility artifact from posterior fusion hardware in the lumbar spine. IMPRESSION: Apparent 2 cm mass in the region of the proximal pancreatic body with upstream pancreatic ductal prominence. Differential considerations include primary pancreatic malignancy versus less likely pancreatic metastasis or peripancreatic lymphadenopathy. Suspected cirrhosis. Multiple hepatic masses, suspicious for metastases. Given the large confluent left hepatic mass, additional differential consideration includes multifocal primary hepatobiliary malignancy such as hepatocellular carcinoma. Subcentimeter structure in the upper left kidney is likely a debris-containing cyst, but is incompletely characterized on this noncontrast MRI. RECOMMENDATION: Consider tissue sampling of the largest left hepatic mass. Signed by: Jeff Kevin MD on 08/08/2019 11:32 AM
[2019-08-08] MEDS: INSULIN LISPRO 100 UNIT/1 ML 3ML VIAL SQ SCH ×3 (11:47→21:50)
--- NOTE | 2019-08-08 12:50 | NUR ---
RECD PT FROM ER VIA STRETCHER,AAOX3,PAIN LEVEL3,NO DISTRESS NOTED,TELE IN PLACE,HOB ELEVATED,LAQUITA MCNEAL IN REACH,CASTELLON TO BSD CLEAR YELLOW URINE
[2019-08-08 13:03] VITALS: BP 139/58
[2019-08-08] MEDS ORDERED: CYMBALTA30 MG PO (14:07)
[2019-08-08] MEDS ORDERED: NEXIUM40 MG PO (14:07)
[2019-08-08] MEDS ORDERED: MORPHINE SULFAT30 M2 PO (14:07)
[2019-08-08] MEDS ORDERED: TRULICITY0.75 MG/0. SQ (14:07)
[2019-08-08 15:48] LABS: CREATINE KINASE MB 1.5 ng/mL (0-5.0)
[2019-08-08 15:54] VITALS: BP 126/64
--- NOTE | 2019-08-08 16:15 | History and Physical ---
PRIMARY CARE PHYSICIAN: Dr. Wilman Bullard. CHIEF COMPLAINT: 1. Abdominal pain. 2. Metabolic acidosis. HISTORY OF PRESENT ILLNESS: The patient is a 74-year-old female, who complained of abdominal pain for the past 3 to 4 days. The patient also has complained of some nausea and vomiting. The patient seemed weak. She seemed anemic. She came to the emergency room for evaluation. She does have lactic acidosis and urinary tract infection, but more importantly a CT scan of abdomen and pelvis showed that the patient may have pancreatic mass with metastasis to the liver. She does have some sign of liver cirrhosis as well. The patient is admitted. IV antibiotic, IV fluid initiated. The patient will need further workup. Consultation with Dr. Kaiser Osei and Dr. Nhung Hill obtained pending on their consultation. PAST MEDICAL HISTORY: Hypertension, diabetes type 2, hypothyroidism, reflux, dyslipidemia, chronic kidney disease. The patient has inflammatory joint disease. PAST SURGICAL HISTORY: Partial colon resection. Lower back surgery. The patient had gastric banding. SOCIAL HISTORY: The patient does not smoke or use alcohol. No regular drugs. ALLERGIES: TO AMOXICILLIN AND CODEINE. HOME MEDICATIONS: The patient is on Tylenol p.r.n., atorvastatin, baclofen, Celebrex, folic acid, Pancrease, levothyroxine, methotrexate, oxycodone, Bactrim, losartan, HCTZ. PHYSICAL EXAMINATION: VITAL SIGNS: Temperature is 98, blood pressure 144/76, pulse rate is 92, respirations 18. GENERAL: The patient is in no acute distress. She is awake, seemed weak though. HEENT: Normocephalic and atraumatic. Anicteric. NECK: Supple grossly. PULMONARY: Diminished breath sounds without any wheezing or coarses. CARDIOVASCULAR: S1, S2. Regular rate and rhythm. ABDOMEN: Soft but no guarding or rebound tenderness. EXTREMITIES: No cyanosis or edema NEUROLOGIC: No gross focal deficit. LABORATORY DATA: WBC is 28, hemoglobin 8.5, hematocrit 27, and platelets is 287. Chemistry; sodium is 132, potassium 4.7, chloride 101, bicarb 21, BUN 32, creatinine 1.6, glucose 267. Lactic acid is 2.3. AST 20, ALT 15, alkaline phosphatase 207. Urinalysis, cloudy urine, many bacteria, small leukocyte esterase. Serology: Coronavirus PCR is still pending. CT abdomen and pelvis that was done as follows. Multiple intrahepatic masses suggestive of metastasis. There is suggestion of liver cirrhosis as well. There is a possibility of a mass in the pancreas body resulting in upstream ductal dilatation. The gastric band in appropriate orientation. No evidence of bowel obstruction or inflammation. Multiple pulmonary nodules. Small right pleural effusion. ASSESSMENT: 1. Abdominal pain associated with possible pancreatic mass and liver metastasis. 2. Metabolic acidosis with combination of diabetes, hypotensive and urinary tract infection. 3. Urinary tract infection. 4. Multiple baseline medical problems. PLAN: 1. IV Levaquin and Flagyl. Consultation with Dr. Hill oncologist and Dr. Kaiser Osei, a electronic scale tester. 2. IV fluids. 3. Home medication adjustment. 4. Repeat lab work. 5. CEA, CA-125, and alpha fetoprotein. 6. Obtain MRI of the abdomen without contrast and also CT scan of the chest without contrast. We will follow up on field service consultant recommendation. The patient may need a tissue biopsy. We will follow up and continue to adjust the patient's medication as appropriate. MD BO Braden/CASSIUS /[id number]
--- NOTE | 2019-08-08 16:45 | Consultation ---
DATE OF CONSULTATION: 08/08/2019 HISTORY OF PRESENT ILLNESS: This is a 74-year-old, who has history of diabetes, presented to the hospital because of abdominal pain, nausea, and vomiting. The patient denies any bleeding along with this problem. Her workup revealed that she has leukocytosis with WBCs up to 34,000 and anemia with hemoglobin of 8.3. Her iron study show anemia of chronic disease. She also has lactic acid of 3.2. She did have a CAT scan of the abdomen and pelvis on admission, which showed evidence of previous gastric banding, but also evidence of a multiple intrahepatic masses, possibly metastasis, possible cirrhosis. There is a possible small mass in the pancreas with pancreatic duct dilatation and also there are multiple pulmonary nodules. PAST MEDICAL PROBLEM: Significant for history of diabetes as mentioned before, and also history of arthritis. MEDICATIONS: On admission, includin. Atorvastatin. 2. Calcium. 3. Baclofen. 4. Celecoxib. 5. Folic acid. 6. Levothyroxine. 7. Insulin. 8. Losartan. ALLERGIES: AMOXICILLIN AND CODEINE. SOCIAL HISTORY: No alcohol use. FAMILY HISTORY: Noncontributory. REVIEW OF SYSTEMS: Denies any chest pain or shortness of breath. Denies any dysphagia or odynophagia. Denies any dysuria, hematuria, or any kind of syncopal episode. PHYSICAL EXAMINATION: VITAL SIGNS: Awake, alert, appears to be stable, in no acute distress at this point. VITAL SIGNS: Afebrile. Current with stable vital signs. HEAD, EYES, EARS, NOSE, and THROAT: Normocephalic and atraumatic. Sclerae are anicteric. NECK: Supple. HEART: Regular. LUNGS: Clear. ABDOMEN: Soft. There is tenderness in the epigastric area. There is no rebound or mass. EXTREMITIES: No clubbing or cyanosis. LAB VALUES: As of today, WBCs of 34.86, hemoglobin of 8.3, hematocrit 26.6, MCV 109.5, iron 49, TIBC 141, and transferrin is 101. Vitamin B12 is 81. Lactic acid is 3.2, BUN 28, and creatinine 1.38. AST of 79 and ALT of 15. RADIOGRAPHIC DATA: CAT scan as mentioned before. ASSESSMENT: 1. Abdominal pain, nausea and vomiting. 2. Multiple liver metastases with questionable mass in the pancreas. 3. Anemia. RECOMMENDATIONS: Continue on antibiotic for now. Follow labs at this point. Agree with the tumor marker. Depending on results, we may have to do an endoscopies as well as colonoscopy for further evaluations and follow clinically. MD CARL Mark/CASSIUS /[id number] cc: MD Wilman Braden MD
--- NOTE | 2019-08-08 17:36 | NUR ---
PT UP IN BED ,NO DISTRRESS NOTED,DENIES PAIN,CASTELLON TO BSD
--- NOTE | 2019-08-08 19:00 | NUR ---
RECEIVED PATIENT IN BEDSIDE SHIFT REPORT. PAIN REPORTED, DAY NURSE TO MEDICATE. IV TO L WRIST RUNNING NS @ 125ML/HR. CASTELLON DRAINING CLEAR, YELLOW URINE DRAINING TO GRAVITY, OFF OF FLOOR. TELE MONITOR ON. NO S&S OF DISTRESS NOTED. BED LOCKED IN LOWEST POSITION, SIDE RAILS UPX2, CALL LIGHT IN REACH.
[2019-08-08] MEDS: ONDANSETRON HCL INJ 2MG/ML 2ML 2 MG/ML VIAL IV PRN (19:14)
[2019-08-08 19:20] VITALS: BP 126/57
[2019-08-08 20:00] VITALS: BP 126/57
[2019-08-08] MEDS ORDERED: CYANOCOBALAMIN INJ 1,000 MCG/ML VIAL SC ONE (20:00)
[2019-08-08 20:52] VITALS: BP 126/57
[2019-08-08 21:07] LABS: INR 1.22; PROTHROMBIN TIME 16.2 seconds (11.9-14.5)
[2019-08-08 21:08] LABS: PARTIAL THROMBOPLASTIN TIME 41.5 seconds (23.8-35.5)
--- NOTE | 2019-08-08 21:45 | NUR ---
CONSENT COMPLETED FOR LIVER BIOPSY, PLACED IN CHART.
[2019-08-08] MEDS ORDERED: LEVOFLOXACIN 750MG/D5W 150ML 150 ML IV SCH (22:30)
[2019-08-09] VITALS (7 sets, daily range): BP systolic 96–120; BP diastolic 42–65
[2019-08-09] MEDS: MORPHINE SULFATE INJ 4 MG/ML INJ 1ML IV PRN ×4 (00:04→18:45)
[2019-08-09] MEDS: ONDANSETRON HCL INJ 2MG/ML 2ML 2 MG/ML VIAL IV PRN ×4 (00:04→18:44)
[2019-08-09] MEDS: SODIUM CHLORIDE 0.9% 1000ML 1,000 ML IV SCH ×3 (00:14→14:15)
[2019-08-09] MEDS: METRONIDAZOLE 500MG/NS 100ML 100 ML IV SCH ×3 (03:30→14:15)
[2019-08-09] MEDS ORDERED: PANTOPRAZOLE 40 MG 10ML VIAL IV SCH (06:00)
--- NOTE | 2019-08-09 06:40 | NUR ---
Bedside shift report received from off going nurse. Patient is resting in bed. No acute distress noted. Call light within reach. Bed in the lowest position. Bed alarm on.
[2019-08-09 07:13] LABS: BASOPHILS % 0.1 % (0.0-1.0); EOSINOPHILS # (AUTO) 0.8 (0.0-0.4); EOSINOPHILS % 2.8 % (0.0-6.0); HEMOGLOBIN 7.2 g/dL (12.0-16.0); LYMPHOCYTES # (AUTO) 1.7 (1.0-3.2); LYMPHOCYTES % 5.8 % (18.0-39.1); MEAN CORPUSCULAR HEMOGLOBIN 35.1 pg (28-32); MEAN CORPUSCULAR HGB CONC 31.7 g/dL (31-35); MEAN CORPUSCULAR VOLUME 110.7 fL (81-99); MONOCYTES # (AUTO) 1.8 (0.2-0.8); MONOCYTES % 6.1 % (4.4-11.3); NEUTROPHILS # (AUTO) 22.8 (2.1-6.9); PLATELET COUNT 178 x10e3/uL (140-360); RED BLOOD COUNT 2.05 x10e6/uL (3.6-5.1); RED CELL DISTRIBUTION WIDTH 14.8 % (11.7-14.4)
[2019-08-09 07:26] LABS: INR 1.28; PROTHROMBIN TIME 16.8 seconds (11.9-14.5)
[2019-08-09] MEDS: INSULIN LISPRO 100 UNIT/1 ML 3ML VIAL SQ SCH ×4 (07:29→20:56)
[2019-08-09 07:32] LABS: ALBUMIN 1.4 g/dL (3.5-5.0); ALBUMIN/GLOBULIN RATIO 0.5 (0.8-2.0); ANION GAP 10.9 mmol/L (8-16); CALCIUM 7.5 mg/dL (8.4-10.2); CREATININE, SERUM 1.26 mg/dL (0.57-1.11); POTASSIUM 3.9 mmol/L (3.5-5.1)
[2019-08-09 07:34] LABS: HEMATOCRIT 22.7 % (34.2-44.1)
--- NOTE | 2019-08-09 07:50 | NUR ---
Notified Dr. Hill of hgb 7.2, hct 22.7. No new orders at this time.
[2019-08-09 07:59] LABS: FERRITIN 601.53 ng/mL (4.63-204.00)
[2019-08-09] MEDS ORDERED: ACETAMINOPHEN 325 MG TAB PO PRN (08:45)
[2019-08-09] MEDS ORDERED: CYANOCOBALAMIN INJ 1,000 MCG/ML VIAL SC SCH (09:00)
[2019-08-09] MEDS ORDERED: SODIUM CHLORIDE 0.9% 250ML 250 ML IV ONE (09:15)
--- NOTE | 2019-08-09 09:15 | NUR ---
ASSESSMENT: Spiritual Distress Pt overwhelmed by illness. Pt feels isolated and in need of emotional and spiritual support. Pt expressed emotions thru words and tears. Pt requests prayer, communion and anointing of the sick. Pt states she is a member of [facility] [employer]. Pt states she needs to talk to her family about decisions. Intervention: Provided unhurried pastoral presence and empathic listening. Facilitated storytelling and illness review. Provided prayer. Coordinated visit from to bring sacraments. Followed up with RN and pt concerning 's ETA. Outcome: Pt expressed appreciation for visit. Will follow as able. SHAAN BLACK Test Lead Application Testing Spiritual Care Department O: [phone]
--- NOTE | 2019-08-09 09:33 | NUR ---
NOTIFIED DR. PRADO THAT PATIENT IS REFUSING TO GO TO [facility].
[2019-08-09] MEDS ORDERED: MIDAZOLAM HCL 2 MG/2 ML VIAL ONE (11:17)
--- NOTE | 2019-08-09 11:17 | NUR ---
LAB CALLED TO NOTIFY THAT BLOOD IS READY. WILL TRANSFUSE AFTER LIVER BIOPSY.
[2019-08-09] MEDS ORDERED: FENTANYL CITRATE/PF 100MCG/2 ML INJ ONE (11:18)
--- NOTE | 2019-08-09 11:30 | NUR ---
PATIENT OFF UNIT FOR LIVER BIOPSY AT THIS TIME.
[2019-08-09 11:59] LABS: BAND NEUTROPHILS % (MANUAL) 2 %; EOSINOPHILS % (MANUAL) 3 % (0-7); LYMPHOCYTES % (MANUAL) 8 % (19-48); MONOCYTES % (MANUAL) 6 % (3.4-9.0); NEUTROPHILS % (MANUAL) 81 % (40-74); OVALOCYTES FEW; PLATELET ESTIMATE ADEQUATE; PLATELET MORPHOLOGY COMMENT NORMAL; RBC MORPHOLOGY COMMENT ABNORMAL
--- NOTE | 2019-08-09 13:11 | NUR ---
PATIENT BACK TO UNIT AT THIS TIME. SHE IS IN STABLE CONDITION.
[2019-08-09] MEDS ORDERED: SODIUM CHLORIDE 0.9% 250ML 250 ML ONE ×2 (14:00→17:29)
[2019-08-09] MEDS ORDERED: ACETAMINOPHEN 325 MG TAB ONE (14:00)
--- NOTE | 2019-08-09 15:05 | Diagnostic Imaging Report ---
PROCEDURE: Ultrasound-guided biopsy Procedural Personnel Attending physician(s): Juan Carlos Sarkar MD Fellow physician(s): None Resident physician(s): None Advanced practice provider(s): None Pre-procedure diagnosis: Liver masses Post-procedure diagnosis: Same Indication: Histopathologic diagnosis Previous biopsy of same target (QCDR): No Additional clinical history: None Complications: No immediate complications. IMPRESSION: Ultrasound-guided biopsy of right liver mass. Plan: Specimen(s) sent for evaluation. PROCEDURE SUMMARY: - Percutaneous US-guided coaxial core needle biopsy - Additional procedure(s): None PROCEDURE DETAILS: Pre-procedure Reference imaging for biopsy target: Abdomen MRI 08/08/[address] 08/07/19 Consent: Informed consent for the procedure including risks, benefits and alternatives was obtained and time-out was performed prior to the procedure. Preparation: The site was prepared and draped using maximal sterile barrier technique including cutaneous antisepsis. Anesthesia/sedation Level of anesthesia/sedation: Moderate sedation (conscious sedation) 2mg Versed 100mcg Fentanyl Anesthesia/sedation administered by: Independent trained observer under attending supervision with continuous monitoring of the patient?s level of consciousness and physiologic status Total intra-service sedation time (minutes): 30 Imaging prior to biopsy The patient was positioned supine. Initial ultrasound was performed. Biopsy target: - Maximal diameter (cm): 2 - Location: Right liver Other findings: None Biopsy Local anesthesia was administered. Under US guidance, the biopsy needle was advanced to the target and biopsy was performed. Coaxial needle: 17 gauge Core needle biopsy device: Mosec, Mobile Secretaryno Core needle size: 18 gauge Number of core specimens: 3 On-site biopsy touch preparation: No Additional sampling recommendations: None Preliminary assessment of sample adequacy: Not applicable Needle removal The biopsy needle was removed and a sterile dressing was applied. Tract embolization: None Imaging following biopsy Immediate post-biopsy ultrasound was performed. Post-biopsy imaging findings: No hematoma Additional Details Additional description of procedure: None Equipment details: None Specimens removed: Biopsy samples as detailed above Estimated blood loss (mL): Less than 10 Standardized report: [id number] Attestation Signer name: Juan Carlos Sarkar MD I attest that I was present for the entire procedure. I reviewed the stored images and agree with the report as written. Signed by: Juan Carlos Sarkar MD on 08/09/2019 3:01 PM
--- NOTE | 2019-08-09 15:57 | NUR ---
CALL RECEIVED FROM SAMUEL HOPE STATING PT HAS CHANGED HER MIND AND WOULD LIKE TO PROCEED W THE TRANSFER TO [facility]. CALL TO PT. DISCUSSED CHOICE FOR [facility] FOR HER CARE. STATES SHE AGREED AND HAS HAD TIME TO SPEAK W HER FAMILY AND WOULD LIKE TO GET STARTED MAR[facility]. CHOICE LETTER WAS SIGNED. INITIATED MOT. CALL TO [facility] @ [phone]. SPOKE W JENNIE. TRANSFER WAS INITIATED. NOTIFIED DR. WYNN OF PT'S CHANGE OF HEART.
--- NOTE | 2019-08-09 16:53 | NUR ---
Nutrition Intervention Note RD Recommendation(s) for Physician: -Recommend advancing to diabetic diet when medically appropriate -Recommend Ensure Clear BID while on clear liquid diet and Glucerna BID when diet is advanced The patient meets criteria for unspecified SEVERE protein-calorie malnutrition Plan of Care: RD following, monitoring for tolerance and adequacy, oral supplement recommendation Nutrition reason for involvement: consult for nutrition evaluation RD Assessment (08/09/19) Pt is a 74 year old female admitted with abdominal pain and leukocytosis. Per MD note, it was found that pt has multiple liver metastases and questionable mass in pancreas. Pt reports a poor appetite with <50% meal intake since April 2019. Pt also mentioned she had lost weight and used to weigh 175 lbs in . Pt stated she weighed 140 lbs 2 weeks ago and the weight in chart of 162 lbs is not accurate. This would be a 20% weight loss in 6 months using weight of 140 lbs which is considered to be significant weight loss. Pt reports some nausea and pain. No chewing/swallowing issues. Will continue to monitor. Principal Problems/Diagnoses: abdominal pain, leukocytosis, multiple liver metastases and questionable mass in pancreas PMH: Hypertension, diabetes type 2, hypothyroidism, reflux, dyslipidemia, chronic kidney disease, inflammatory joint disease GI: soft abdomen, last recorded BM 08/07 Skin: intact Labs: (08/08) Na 138, K 3.9, BUN 23, Cr 1.26, Ca 7.5, Glu 120 Meds: zofran, vitamin B12, antibiotic, protonix, levofloxacin, insulin Ht: 60 inches Wt: 140 lbs (per pt) BMI: 27.3 kg/m2 IBW: 100 lbs Malnutrition Evaluation (08/09/19) The patient meets criteria for unspecified SEVERE protein-calorie malnutrition. Energy intake: <75% of estimated energy requirements for >1 month Weight loss: >10% in 6 months (Chronic) Fat loss: no loss identified Muscle loss: no loss identified Supporting Evidence: Fluid accumulation: unable to evaluate Functional Status: unable to evaluate Nutrition Prescription (Diet Order): clear liquid Estimated Nutritional Needs: 0597-3028 calories/day (18-20 kcal/kg) Weighed used: 140 lbs 64-95 g protein/day (1-1.5 g pro/kg) Weighed used: 140 lbs Diet Adequacy: Not meeting calorie needs, Not meeting protein needs Tolerance: Tolerance pending Diet Education Needs Assessment: Diet education not indicated, patient on temporary/transition diet. Nutrition Care Level: high Nutrition Diagnosis: Severe malnutrition related to chronic illness as evidenced by pt meeting <75% of estimated energy needs for > 1 month and >10% weight loss in 6 months per pt. Goal: Patient will meet 75-100% of estimated needs by follow up Progress: N/A Interventions: -carbohydrate- modified diet, Commercial beverage Monitoring/Evaluation: -Total energy intake, Total protein intake, Modified diet, Liquid supplement, Weight change Signed: Angelica Bowden RD, LD
--- NOTE | 2019-08-09 19:04 | NUR ---
BEDSIDE SHIFT REPORT GIVEN TO ONCOMING NURSE. PATIENT IS RESTING IN BED. NO ACUTE DISTRESS NOTED. CALL LIGHT WITHIN REACH. BED ALARM ON.
[2019-08-09] MEDS ORDERED: LOPERAMIDE HCL 2 MG CAP PO ONE (20:00)
--- NOTE | 2019-08-09 20:37 | NUR ---
Report called to Melvina Gavin RN (receiving nurse at [facility]). Patient going to Rm [id number]. Melvina aware of pt history and current condition.
[2019-08-09] MEDS ORDERED: CHOLESTYRAMINE 4 GM PACKET PO SCH (22:00)
[2019-08-09] MEDS ORDERED: LOPERAMIDE HCL 2 MG CAP PO PRN (22:00)
[2019-08-10] MEDS ORDERED: CYANOCOBALAMIN 1,000 MCG TAB PO SCH (09:00)
--- NOTE | 2019-08-10 09:03 | Discharge Summary ---
CONSULTANTS: 1. Kaiser Osei MD. 2. Nhung Hill MD. FINAL DIAGNOSES: 1. Pancreatic mass. 2. Possible liver metastasis. SUMMARY: This is a 74-year-old female, came in with abdominal pain. She does have pancreatic mass confirmed with MRI. The patient will need a pancreatic biopsy with possible ERCP or EGD and EUS biopsy of the pancreatic mass. The patient is otherwise stable. The patient was transferred to [facility] for the procedures since the EUS is not available here at [facility]. The patient is otherwise stable. Transfer the patient and we will continue to work the patient up for malignancy. Discussed with the patient and family. Discussed with Dr. Kaiser Osei. The patient was transferred to [facility] on August 09, 2019, in the p.m. MD Tana BradenT/MODL /[id number]
== END 2019-08-09 21:11 | disposition short-term general hospital (02) | DRG 872 ==
LOC: ER 18:00 → ERHOLD 08-08 01:06 → MED/SURG3 08-08 12:45
PROVIDERS: ADMIT Internal Medicine; ATTEND Internal Medicine
PROC: 0FB13ZX Excision of Right Lobe Liver, Percutaneous Approach, Diagnostic (ICD-10-PCS; principal; 2019-08-09)
PROC: 30233N1 Transfusion of Nonautologous Red Blood Cells into Peripheral Vein, Percutaneous Approach (ICD-10-PCS; 2019-08-09)
DX: A41.9 Sepsis, unspecified organism (principal); N39.0 Urinary tract infection, site not specified; C25.3 Malignant neoplasm of pancreatic duct; E87.2 Acidosis; N17.9 Acute kidney failure, unspecified; C78.7 Secondary malignant neoplasm of liver and intrahepatic bile duct; R65.20 Severe sepsis without septic shock; R91.1 Solitary pulmonary nodule; E03.9 Hypothyroidism, unspecified; K21.9 Gastro-esophageal reflux disease without esophagitis; E78.5 Hyperlipidemia, unspecified; E11.22 Type 2 diabetes mellitus with diabetic chronic kidney disease; I12.9 Hypertensive chronic kidney disease with stage 1 through stage 4 chronic kidney disease, or unspecified chronic kidney disease; N18.9 Chronic kidney disease, unspecified; E78.00 Pure hypercholesterolemia, unspecified; D64.9 Anemia, unspecified; E53.8 Deficiency of other specified B group vitamins; R63.0 Anorexia; R53.81 Other malaise; G89.4 Chronic pain syndrome; Z90.49 Acquired absence of other specified parts of digestive tract; Z90.710 Acquired absence of both cervix and uterus; Z88.1 Allergy status to other antibiotic agents; Z88.5 Allergy status to narcotic agent
CPT/HCPCS: 36415; 47000; 51700; 71250; 74176; 74181; 74470; 76942; 80053; 81001; 82105; 82140; 82150; 82378; 82550; 82553; 82607; 82728; 82746; 82948; 83036; 83540; 83605; 83690; 83880; 84443; 84466; 84484; 85025; 85610; 85730; 86301; 86304; 86850; 86900; 86920; 87040; 87635; 88307; 88342; 93005; 99284; J2250; J2270; J2405; J3010; J3420; J7030; J7050; P9016